=== PATIENT | female | born 1955 | race Asian ===

== ENCOUNTER 2019-11-29 03:34 | Inpatient (IN) | payer MEDICAID ==
[~2019-11-29] VITALS: Ht 154.9 cm; Wt 56.3 kg
--- NOTE | 2019-11-29 03:40 | NUR ---
ED Nurse Note: brought in by [facility] c/o heart palpitation onset 3 days ago, denies sob or cp. States being on atbx (cefalexin) regime for 5 days for GI complication prescribed by HCP. VSS, nad, aaox4, ambulatory. ermd at bedside, on compliance monitor.
--- NOTE | 2019-11-29 03:50 | NUR ---
ED Nurse Note: blood and urine collected and sent to lab.
[2019-11-29 03:51] LABS: HEMATOCRIT 38.6 % (37.0-47.0); HEMOGLOBIN 13.3 G/DL (12.0-16.0); MEAN CORPUSCULAR VOLUME 86 FL (80-99); PLATELET COUNT 198 K/UL (150-450); RED BLOOD COUNT 4.47 M/UL (4.20-5.40); RED CELL DISTRIBUTION WIDTH 11.3 % (11.6-14.8); WHITE BLOOD COUNT 7.6 K/UL (4.8-10.8)
[2019-11-29 04:00] VITALS: BP 168/94
[2019-11-29 04:05] LABS: ANION GAP 9 mmol/L (5-15); BLOOD UREA NITROGEN 20 mg/dL (7-18); CALCIUM 8.9 MG/DL (8.5-10.1); CARBON DIOXIDE 25 MMOL/L (21-32); CHLORIDE 105 MMOL/L (98-107); CREATININE 0.8 MG/DL (0.55-1.30); POTASSIUM 3.1 MMOL/L (3.5-5.1); SODIUM 139 MMOL/L (136-145)
[2019-11-29 04:06] LABS: INR 0.9 (0.9-1.1); PARTIAL THROMBOPLASTIN TIME 25 SEC (23-33)
--- NOTE | 2019-11-29 04:12 | NUR ---
ED Nurse Note: xr at bedside
[2019-11-29 04:24] LABS: ALANINE AMINOTRANSFERASE 48 U/L (12-78); ALBUMIN 4.1 G/DL (3.4-5.0); ALBUMIN/GLOBULIN RATIO 1.5 (1.0-2.7); ALKALINE PHOSPHATASE 74 U/L (46-116); ASPARTATE AMINO TRANSFERASE 24 U/L (15-37); BILIRUBIN,TOTAL 0.3 MG/DL (0.2-1.0); CREATINE KINASE 50 U/L (26-308); FERRITIN 165 NG/ML (8-388); LACTATE DEHYDROGENASE 173 U/L (81-234)
[2019-11-29] MEDS ORDERED: METFORMIN HCL500 M4 ORAL (04:34)
[2019-11-29] MEDS ORDERED: CEPHALEXIN500 MG ORAL (04:34)
[2019-11-29] MEDS ORDERED: METOPROLOL TAR100 M1 ORAL (04:34)
[2019-11-29] MEDS ORDERED: AMLODIPINE BESY10 MG ORAL (04:34)
--- NOTE | 2019-11-29 04:34 | Emergency Room Report ---
History of Present Illness General Chief Complaint: Palpitations Source: Patient Present Illness HPI Patient presents with 2 days of palpitations. They got worse tonight. She feels dizziness with the palpitations. Before 2 days she never had these symptoms. This was preceded with a week of diarrhea and brown in color without any blood. She was started on Keflex 500 mg twice daily to treat this. The diarrhea is somewhat better. She denies any abdominal pain associated with that. She was seen in an outpatient clinic where they started her on the Keflex. Patient was paz transported by paramedics. They had difficulty with language. They thought that she had shortness of breath. Her oxygen saturation was 98% and she was in no distress during the transport. The patient is diabetic. He also has hypertension. Her blood sugars have been 120 in the morning. She denies exposure to COVID-19 positive contacts. No fevers, chills, sore throat, chest pain, palpitations, dysuria, shortness of breath, joint pain, rashes, depression, anxiety, visual changes, headache. Allergies: Coded Allergies: No Known Allergies (Unverified , 11/29/19) COVID-19 Screening Contact w/high risk pt: No Experienced COVID-19 symptoms?: No COVID-19 Testing performed METALLURGICAL ENGINEERING TECHNICIAN: No Patient History Past Medical History: see triage record Social History: Denies: smoking, alcohol use, drug use Social History Narrative With family Now: No : 2 Para: 2 Reviewed Nursing Documentation: PMH: Agreed; PSxH: Agreed Nursing Documentation-PMH Hx Hypertension: Yes Hx Diabetes: Yes Review of Systems All Other Systems: negative except mentioned in HPI Physical Exam Vital Signs Date Time Temp Pulse Resp B/P (MAP) Pulse Ox O2 Delivery O2 Flow Rate FiO2 11/29/19 03:23 98 11/29/19 03:23 98.8 97 20 175/97 (123) Room Air Sp02 EP Interpretation: reviewed, normal General Appearance: well appearing, no apparent distress, GCS 15, other - frail Head: normocephalic 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; bilateral eye PERRL, bilateral eye EOMI ENT: moist mucus membranes Neck: supple Respiratory: lungs clear, normal breath sounds Cardiovascular #1: regular rate, rhythm Cardiovascular #2: 2+ radial (R) Gastrointestinal: normal inspection, normal bowel sounds, non tender, no mass, non-distended Musculoskeletal: back normal, normal range of motion, gait/station normal Neurologic: alert, motor strength/tone normal, oriented x3, sensory intact, cerebellar normal, speech normal, other - De La Vega's palsey Psychiatric: mood/affect normal Skin: no rash, warm/dry Medical Decision Making Diagnostic Impression: Primary Impression: Ventricular arrhythmia Additional Impressions: Hypokalemia UTI (urinary tract infection) Qualified Codes: N39.0 - Urinary tract infection, site not specified Elevated TSH ER Course Patient presents with palpitations with dizziness after diarrhea and being on antibiotics. Differential includes acute myocardial infarction, arrhythmia, electrolyte imbalance, COVID-19 amongst others. Patient evaluated with EKG, chest x-ray and labs. Patient treated with IV hydration. No ectopy noted on EKG however in the monitor and storage bin tender unifocal PVCs were frequent. CBC and CMP remarkable for low potassium. Negative troponin. TSH is elevated. Free T3 and T4 are normal. Treated with potassium PO and IV. Ectopy seems improved. Patient still needs observation telemetry and treatment for possible resistant UTI. Laboratory Tests Test 11/29/19 03:33 11/29/19 04:32 White Blood Count 7.6 K/UL (4.8-10.8) Red Blood Count 4.47 M/UL (4.20-5.40) Hemoglobin 13.3 G/DL (12.0-16.0) Hematocrit 38.6 % (37.0-47.0) Mean Corpuscular Volume 86 FL (80-99) Mean Corpuscular Hemoglobin 29.7 PG (27.0-31.0) Mean Corpuscular Hemoglobin Concent 34.4 G/DL (32.0-36.0) Red Cell Distribution Width 11.3 % (11.6-14.8) L Platelet Count 198 K/UL (150-450) Mean Platelet Volume 8.1 FL (6.5-10.1) Neutrophils (%) (Auto) % (45.0-75.0) Lymphocytes (%) (Auto) % (20.0-45.0) Monocytes (%) (Auto) % (1.0-10.0) Eosinophils (%) (Auto) % (0.0-3.0) Basophils (%) (Auto) % (0.0-2.0) Prothrombin Time 10.0 SEC (9.30-11.50) Prothrombin Time INR 0.9 (0.9-1.1) Activated Partial Thromboplast Time 25 SEC (23-33) D-Dimer < 0.19 mg/L FEU Sodium Level 139 MMOL/L (136-145) Potassium Level 3.1 MMOL/L (3.5-5.1) L Chloride Level 105 MMOL/L (98-107) Carbon Dioxide Level 25 MMOL/L (21-32) Anion Gap 9 mmol/L (5-15) Blood Urea Nitrogen 20 mg/dL (7-18) H Creatinine 0.8 MG/DL (0.55-1.30) Estimated Glomerular Filtration Rate > 60 mL/min (>60) Glucose Level 169 MG/DL (74-106) H Lactic Acid Level 1.80 mmol/L (0.4-2.0) Calcium Level 8.9 MG/DL (8.5-10.1) Magnesium Level 1.8 MG/DL (1.8-2.4) Ferritin 165 NG/ML (8-388) Total Bilirubin 0.3 MG/DL (0.2-1.0) Aspartate Amino Transferase (AST) 24 U/L (15-37) Alanine Aminotransferase (ALT) 48 U/L (12-78) Alkaline Phosphatase 74 U/L (46-116) Lactate Dehydrogenase 173 U/L (81-234) Total Creatine Kinase 50 U/L (26-308) Troponin I 0.000 ng/mL (0.000-0.056) C-Reactive Protein, Quantitative < 0.4 mg/dL (0.00-0.90) Pro-B-Type Natriuretic Peptide 89 pg/mL (0-125) Total Protein 6.8 G/DL (6.4-8.2) Albumin 4.1 G/DL (3.4-5.0) Globulin 2.7 g/dL Albumin/Globulin Ratio 1.5 (1.0-2.7) Lipase 181 U/L (73-393) Thyroid Stimulating Hormone (TSH) 7.893 uiU/mL (0.358-3.740) Free Thyroxine 1.18 NG/DL (0.76-1.46) Free Triiodothyronine 3.0 pg/mL (2.3-4.2) Urine Color Pale yellow Urine Appearance Slightly cloudy Urine pH 6.0 (4.5-8.0) Urine Specific [place] 1.010 (1.005-1.035) Urine Protein Negative (NEGATIVE) Urine Glucose (UA) Negative (NEGATIVE) Urine Ketones Negative (NEGATIVE) Urine Blood Negative (NEGATIVE) Urine Nitrite Negative (NEGATIVE) Urine Bilirubin Negative (NEGATIVE) Urine Urobilinogen Normal MG/DL (0.0-1.0) Urine Leukocyte Esterase 3+ (NEGATIVE) H Urine RBC 0-2 /HPF (0 - 2) Urine WBC Tntc /HPF (0 - 2) H Urine Squamous Epithelial Cells Moderate /LPF (NONE/OCC) H Urine Bacteria Few /HPF (NONE) Microbiology Date/Time Source Procedure Growth Status 11/29/19 03:42 Nasopharynx SARS-CoV-2 RdRp Gene Assay - Final Complete EKG Diagnostic Results Rate: normal Rhythm: NSR ST Segments: no acute changes Rhythm Strip Diag. Results EP Interpretation: yes Rhythm: NSR, other - Frequent unifocal PVCs on monitor not captured on EKG. Chest X-Ray Diagnostic Results Chest X-Ray Diagnostic Results : Chest X-Ray Ordered: Yes # of Views/Limited/Complete: 1 View Indication: Other EP Interpretation: Yes Interpretation: no consolidation, no effusion, no pneumothorax Impression: No acute disease Last Vital Signs Date Time Temp Pulse Resp B/P (MAP) Pulse Ox O2 Delivery O2 Flow Rate FiO2 11/29/19 09:57 75 129/72 11/29/19 08:00 98.1 19 96 11/29/19 06:35 Room Air Status: improved Disposition: PLACE IN OBSERVATION Condition: Serious Referrals: NOT CHOSEN IPA/,REFERRING (PCP) Guanakito Haro MD Nov 29, 2019 04:34
[2019-11-29 05:35] LABS: BILIRUBIN, URINE NEGATIVE (NEGATIVE); COLOR,URINE PALE YELLOW; GLUCOSE, URINE (UA) NEGATIVE (NEGATIVE); KETONES,URINE NEGATIVE (NEGATIVE); NITRITE,URINE NEGATIVE (NEGATIVE); PROTEIN,URINE NEGATIVE (NEGATIVE)
[2019-11-29 05:36] LABS: APPEARANCE,URINE SLIGHTLY CLOUDY; LEUKOCYTE ESTERASE ,URINE 3+ (NEGATIVE); UROBILINOGEN,URINE NORMAL MG/DL (0.0-1.0)
[2019-11-29] MEDS ORDERED: cefTRIAXone 1 GM in NS 55 ML IVPB ONE (05:45)
--- NOTE | 2019-11-29 06:18 | NUR ---
ED Nurse Note: gave report to parole agent at tele
[2019-11-29 06:19] VITALS: BP 142/90
--- NOTE | 2019-11-29 06:35 | NUR ---
TRANSFER TO FLOOR: Patient transferred to [facility] in stable condition as ordered, per dr. Viera . Report given to Rebecca BARRIOS. Belongings sent with patient
--- NOTE | 2019-11-29 07:15 | NUR ---
NURSE NOTES: Pt received from José Luis BARRIOS. Pt in bed sleeping. Admission orders not yet done. Called daughter to gather profile/hx and contactd Dr. Viera for admin orders. No sign of distress per pt no pain at this time. Bed low and locked. call light within reach. Whiteboard updated.
[2019-11-29 08:00] VITALS: BP 129/72
[2019-11-29] MEDS ORDERED: Miralax 17gm pkt ORAL PRN (08:30)
[2019-11-29] MEDS ORDERED: Tylenol #3 tab (300mg/30mg) ORAL PRN (08:30)
[2019-11-29] MEDS ORDERED: Nitroglycerin Subl 0.4mg tab SL PRN (08:30)
[2019-11-29] MEDS ORDERED: Enalaprilat 2.5mg/2ml Inj IV PRN (08:30)
[2019-11-29] MEDS ORDERED: dilTIAZem HCl 25mg/5ml Inj IV PRN (08:30)
[2019-11-29] MEDS ORDERED: Albuterol/Ipratropium 3ml neb HHN PRN (08:30)
[2019-11-29] MEDS ORDERED: Heparin 5000 units/ml inj SUBQ SCH (09:00)
[2019-11-29] MEDS ORDERED: Aspirin Baby 81mg ORAL SCH (09:00)
[2019-11-29] MEDS: Aspirin Baby 81mg ORAL SCH (09:57)
[2019-11-29] MEDS: Metoprolol Tartrate 100mg tab ORAL SCH (09:57)
--- NOTE | 2019-11-29 10:27 | Diagnostic Imaging Report ---
Procedure: XRAY Chest 1v Reason for study: Chest pain Comparison films: None. FINDINGS: A single one view chest is obtained. Vascularity is normal. The lung wilson are clear bilaterally. Cardiac and mediastinal silhouette are within normal limits. CP angles are sharp. The bony thorax appear unremarkable. IMPRESSION: NO ACUTE CARDIOPULMONARY DISEASE.
--- NOTE | 2019-11-29 11:27 | Consultation ---
History of Present Illness General Date patient seen: Nov 29, 2019 Chief Complaint: Palpitations Present Illness HPI 64 year old female with hx of HTN, Diabetes presented to ER with 2 days of palpitations. She felt dizziness with the palpitations. During the evaluation in ER she had in the radiation monitor frequent unifocal PVCs. Allergies: Coded Allergies: No Known Allergies (Unverified , 11/29/19) Medication History Scheduled Amlodipine Besylate* (Amlodipine Besylate*), 10 MG ORAL DAILY, (Reported) Cephalexin* (Keflex*), 500 MG ORAL EVERY 12 HOURS, (Reported) Metformin Hcl (Metformin Hcl Er), 500 MG ORAL DAILY, (Reported) Metoprolol Tartrate* (Metoprolol Tartrate*), 100 MG ORAL DAILY, (Reported) Patient History Healthcare decision maker Resuscitation status Advanced Directive on File Past Medical/Surgical History Past Medical/Surgical History: (1) Diabetes mellitus (2) History of hypertension Review of Systems All Other Systems: negative except mentioned in HPI Physical Exam General Appearance: WD/WN Lines, tubes and drains: peripheral HEENT: normocephalic, atraumatic Neck: non-tender, normal alignment Respiratory/Chest: chest wall non-tender, lungs clear Breasts: no masses Cardiovascular/Chest: normal peripheral pulses Abdomen: normal bowel sounds, non tender Genitourinary/Rectal: normal genital exam Extremities: normal range of motion Skin Exam: normal pigmentation Neurologic: order runner II-XII grossly normal Last 24 Hour Vital Signs Date Time Temp Pulse Resp B/P (MAP) Pulse Ox O2 Delivery O2 Flow Rate FiO2 11/29/19 09:57 75 129/72 11/29/19 09:57 75 129/72 11/29/19 09:00 Room Air 11/29/19 08:00 75 11/29/19 08:00 98.1 71 19 129/72 (91) 96 11/29/19 07:31 Room Air 11/29/19 06:35 98.1 65 20 142/90 98 Room Air 11/29/19 06:19 98.1 65 20 142/90 98 Room Air 11/29/19 04:00 97.8 78 20 168/94 98 Room Air 11/29/19 03:23 98.8 97 20 175/97 (123) 96 Room Air 11/29/19 03:23 98 Laboratory Tests Test 11/29/19 03:33 11/29/19 04:32 White Blood Count 7.6 K/UL (4.8-10.8) Red Blood Count 4.47 M/UL (4.20-5.40) Hemoglobin 13.3 G/DL (12.0-16.0) Hematocrit 38.6 % (37.0-47.0) Mean Corpuscular Volume 86 FL (80-99) Mean Corpuscular Hemoglobin 29.7 PG (27.0-31.0) Mean Corpuscular Hemoglobin Concent 34.4 G/DL (32.0-36.0) Red Cell Distribution Width 11.3 % (11.6-14.8) L Platelet Count 198 K/UL (150-450) Mean Platelet Volume 8.1 FL (6.5-10.1) Neutrophils (%) (Auto) % (45.0-75.0) Lymphocytes (%) (Auto) % (20.0-45.0) Monocytes (%) (Auto) % (1.0-10.0) Eosinophils (%) (Auto) % (0.0-3.0) Basophils (%) (Auto) % (0.0-2.0) Prothrombin Time 10.0 SEC (9.30-11.50) Prothromb Time International Ratio 0.9 (0.9-1.1) Activated Partial Thromboplast Time 25 SEC (23-33) D-Dimer < 0.19 mg/L FEU Sodium Level 139 MMOL/L (136-145) Potassium Level 3.1 MMOL/L (3.5-5.1) L Chloride Level 105 MMOL/L (98-107) Carbon Dioxide Level 25 MMOL/L (21-32) Anion Gap 9 mmol/L (5-15) Blood Urea Nitrogen 20 mg/dL (7-18) H Creatinine 0.8 MG/DL (0.55-1.30) Estimat Glomerular Filtration Rate > 60 mL/min (>60) Glucose Level 169 MG/DL (74-106) H Lactic Acid Level 1.80 mmol/L (0.4-2.0) Calcium Level 8.9 MG/DL (8.5-10.1) Magnesium Level 1.8 MG/DL (1.8-2.4) Ferritin 165 NG/ML (8-388) Total Bilirubin 0.3 MG/DL (0.2-1.0) Aspartate Amino Transf (AST/SGOT) 24 U/L (15-37) Alanine Aminotransferase (ALT/SGPT) 48 U/L (12-78) Alkaline Phosphatase 74 U/L (46-116) Lactate Dehydrogenase 173 U/L (81-234) Total Creatine Kinase 50 U/L (26-308) Troponin I 0.000 ng/mL (0.000-0.056) C-Reactive Protein, Quantitative < 0.4 mg/dL (0.00-0.90) Pro-B-Type Natriuretic Peptide 89 pg/mL (0-125) Total Protein 6.8 G/DL (6.4-8.2) Albumin 4.1 G/DL (3.4-5.0) Globulin 2.7 g/dL Albumin/Globulin Ratio 1.5 (1.0-2.7) Lipase 181 U/L (73-393) Thyroid Stimulating Hormone (TSH) 7.893 uiU/mL (0.358-3.740) Free Thyroxine 1.18 NG/DL (0.76-1.46) Free Triiodothyronine 3.0 pg/mL (2.3-4.2) Urine Color Pale yellow Urine Appearance Slightly cloudy Urine pH 6.0 (4.5-8.0) Urine Specific [place] 1.010 (1.005-1.035) Urine Protein Negative (NEGATIVE) Urine Glucose (UA) Negative (NEGATIVE) Urine Ketones Negative (NEGATIVE) Urine Blood Negative (NEGATIVE) Urine Nitrite Negative (NEGATIVE) Urine Bilirubin Negative (NEGATIVE) Urine Urobilinogen Normal MG/DL (0.0-1.0) Urine Leukocyte Esterase 3+ (NEGATIVE) H Urine RBC 0-2 /HPF (0 - 2) Urine WBC Tntc /HPF (0 - 2) H Urine Squamous Epithelial Cells Moderate /LPF (NONE/OCC) H Urine Bacteria Few /HPF (NONE) Microbiology Date/Time Source Procedure Growth Status 11/29/19 03:42 Nasopharynx SARS-CoV-2 RdRp Gene Assay - Final Complete Height (Feet): 5 Height (Inches): 1.00 Weight (Pounds): 130 Medications Current Medications Medications (Trade) Dose Ordered Sig/Sabas Route PRN Reason Start Time Stop Time Status Last Admin Dose Admin Acetaminophen (Tylenol) 650 mg Q4H PRN ORAL FEVER 11/29/19 08:30 12/29/19 08:29 Acetaminophen (Tylenol) 650 mg Q6H PRN ORAL For mild pain and temp>100.4 11/29/19 08:30 12/29/19 08:29 Acetaminophen/ Codeine Phosphate (Tylenol #3) 1 tab Q6H PRN ORAL For severe Pain 11/29/19 08:30 12/06/19 08:29 Albuterol/ Ipratropium (Albuterol/ Ipratropium) 3 ml Q4H PRN HHN Shortness of Breath 11/29/19 08:30 12/04/19 08:29 Amlodipine Besylate (Norvasc) 10 mg DAILY ORAL 11/29/19 09:00 12/29/19 08:59 11/29/19 09:57 Aspirin (ASA) 162 mg DAILY ORAL 11/29/19 09:00 01/13/20 08:59 11/29/19 09:57 Ceftriaxone Sodium 1 gm/ Dextrose 55 ml @ 110 mls/hr Q24H IVPB 11/29/19 21:00 12/06/19 20:59 Dextrose (Dextrose 50%) 25 ml Q30M PRN IV Hypoglycemia 11/29/19 08:30 02/27/20 08:29 Dextrose (Dextrose 50%) 50 ml Q30M PRN IV Hypoglycemia 11/29/19 08:30 02/27/20 08:29 Diltiazem HCl (Cardizem) 10 mg Q1H PRN IV heart rate more than 120, 11/29/19 08:30 12/29/19 08:29 Enalaprilat (Vasotec) 2.5 mg Q6H PRN IV sbp more than 160 11/29/19 08:30 12/29/19 08:29 Heparin Sodium (Porcine) (Heparin 5000 units/ml) 5,000 units EVERY 8 HOURS SUBQ 11/29/19 14:00 01/13/20 13:59 Insulin Aspart (NovoLOG) BEFORE MEALS AND HS SUBQ 11/29/19 11:30 02/27/20 11:29 Metoprolol Tartrate (Lopressor) 100 mg DAILY ORAL 11/29/19 09:07 02/27/20 09:06 11/29/19 09:57 Nitroglycerin (Ntg) 0.4 mg Q5M PRN SL Prn Chest Pain 11/29/19 08:30 12/29/19 08:29 Ondansetron HCl (Zofran) 4 mg Q6H PRN IVP Nausea & Vomiting 11/29/19 08:30 12/29/19 08:29 Pantoprazole (Protonix) 40 mg DAILY ORAL 11/29/19 09:00 12/29/19 08:59 11/29/19 09:56 Polyethylene Glycol (Miralax) 17 gm DAILYPRN PRN ORAL Constipation 11/29/19 08:30 12/29/19 08:29 Temazepam (Restoril) 15 mg HSPRN PRN ORAL Insomnia 11/29/19 08:30 12/06/19 08:29 Assessment/Plan Problem List: (1) Arrhythmia ICD Codes: I49.9 - Cardiac arrhythmia, unspecified SNOMED: 753075851 (2) History of hypertension ICD Codes: Z86.79 - Personal history of other diseases of the circulatory system SNOMED: 018488834 (3) Diabetes mellitus ICD Codes: E11.9 - Type 2 diabetes mellitus without complications SNOMED: 01703641 Assessment/Plan: echo cardiac monitoring check electrolytes cardiology to see sliding scale diabetic diet dvt prophylaxis symptomatic treatment Paulette Garcia MD Nov 29, 2019 11:27
[2019-11-29] MEDS: NovoLOG Insulin Flexpen SUBQ SCH ×3 (11:30→21:00)
[2019-11-29 12:00] VITALS: BP 115/61
--- NOTE | 2019-11-29 14:07 | Cardiology Report ---
APPROVED REPORT EXAM: Two-dimensional and M-mode echocardiogram with Doppler and color Doppler. INDICATION Left ventricular function M-Mode DIMENSIONS IVSd1.1 (0.7-1.1cm)Left Atrium (MM)3.5 (1.6-4.0cm) LVDd5.5 (3.5-5.6cm)Aortic Root2.8 (2.0-3.7cm) PWd1.1 (0.7-1.1cm)Aortic Cusp Exc.2.1 (1.5-2.0cm) IVSs1.8 cmEPSS0.8 (>1.0cm) LVDs3.3 (2.5-4.0cm) PWs2.4 cm <Conclusion> Normal left ventricular chamber size, systolic function and wall motion. Left ventricular ejection fraction estimated to be 60-65%. No evidence of left ventricular hypertrophy. No evidence of pericardial effusion. All other cardiac chamber sizes are within normal limits. Focal aortic valve sclerosis with adequate cusp excursion. Thickened mitral valve leaflets with normal excursion. Mitral annulus and aortic root calcification. Normal pulmonic valve structure. Normal tricuspid valve structure. IVC at normal size and collapsing with respiration. A color flow and spectral Doppler study was performed and revealed: No aortic regurgitation. Trace mitral regurgitation. Can not determine left ventricular diastolic function by mitral diastolic velocities due to arrhythmia. Trace to mild tricuspid regurgitation. Tricuspid systolic velocities suggests peak right ventricular systolic pressure of 25 mmHg. No pulmonic regurgitation present.
[2019-11-29] MEDS: Heparin 5000 units/ml inj SUBQ SCH ×2 (14:31→21:45)
[2019-11-29 15:14] LABS: APPEARANCE,URINE CLEAR; BILIRUBIN, URINE NEGATIVE (NEGATIVE); COLOR,URINE PALE YELLOW; GLUCOSE, URINE (UA) NEGATIVE (NEGATIVE); KETONES,URINE NEGATIVE (NEGATIVE); LEUKOCYTE ESTERASE ,URINE 2+ (NEGATIVE); NITRITE,URINE NEGATIVE (NEGATIVE); PH,URINE 5 (4.5-8.0); PROTEIN,URINE NEGATIVE (NEGATIVE); UROBILINOGEN,URINE NORMAL MG/DL (0.0-1.0)
--- NOTE | 2019-11-29 15:19 | History & Physical ---
History and Physical History & Physicial -[id number] Cecil Viera MD Nov 29, 2019 15:19
[2019-11-29 16:00] VITALS: BP 118/97
--- NOTE | 2019-11-29 19:41 | NUR ---
NURSE HAND-OFF REPORT: Important Events on Shift: None Patient Status: in bed sleeping stable Diet:CCHo medium Pending Orders: Pending Results/Labs: Pending MD notification: Latest Vital Signs: Temperature 99.6 , Pulse 81 , B/P 118 /97 , Respiratory Rate 21 , O2 SAT 96 , Room Air, O2 Flow Rate . Vital Sign Comment: EKG Rhythm: Sinus Rhythm Rhythm change?: N MD Notified?: N - MD Response: Latest Tristan Fall Score: 0 Fall Risk: Low Risk Safety Measures: Call light Within Reach, Bed Alarm Zone 1, Side Rails Side Rails x2, Bed position Low and Locked. Fall Precautions: Patient Fall Education Report given to .
--- NOTE | 2019-11-29 19:53 | NUR ---
NURSE NOTES: Received pt from DENIS Ruiz. Pt asleep. Bed in lowest position. Call light within reach. Will continue to monitor.
[2019-11-29 20:00] VITALS: BP 120/66
--- NOTE | 2019-11-29 20:59 | History and Physical Report ---
DATE OF ADMISSION: 11/29/2019 CHIEF COMPLAINT: Weakness, palpitation. HISTORY OF PRESENT ILLNESS: This is a 64-year-old [place] female with past medical history significant for hypertension and diabetes type 2, who presented to the emergency department complaining about palpitation over the past two days. The patient felt dizzy and palpitation, was recently started on the Keflex due to the urinary tract infection. Her symptoms got progressively worsening. Upon arrival to the emergency room, the patient was noted to have multiple PVC's on the safety security officer and subsequently the patient was admitted to the hospital with palpitation, hypokalemia, and urinary tract infection. PAST MEDICAL HISTORY/PAST SURGICAL HISTORY: As above, history of diabetes type 2, hypertension, recent urinary tract infection. MEDICATIONS: Medications at home is significant for amlodipine, Keflex, metformin, and metoprolol. ALLERGIES: No known drug allergies. SOCIAL HISTORY: No smoking, alcohol, or drugs. FAMILY HISTORY: Noncontributory. REVIEW OF SYSTEMS: Mostly as above. Denies any a dysuria, frequency, or hematuria. Denies any hemoptysis or hematochezia. Denies any bright red blood per rectum. PHYSICAL EXAMINATION: VITAL SIGNS: On admission, temperature 98.8, pulse of 97, respiratory rate 20, and blood pressure 175/97; repeat one was 129/72. GENERAL: The patient is awake and responsive, in no acute distress. HEAD AND NECK: Pupils are equal and reactive to light. Extraocular movements are intact. Neck was supple. No JVD. LUNGS: Good air entry. No wheezing or rales. HEART: S1, S2. Regular rhythm. No gallops. ABDOMEN: Soft, nondistended, and nontender. Positive bowel sounds. EXTREMITIES: No cyanosis, clubbing, or edema. NEUROLOGIC: Cranial nerves II through XII grossly normal. Motor is 5/5 in all extremities. Gait is intact. RECTAL: Refused and deferred. GENITOURINARY: Refused and deferred. PSYCHIATRIC: Mood and affect is intact. LABORATORY DATA: On admission from the emergency room, WBC of 7.9, hemoglobin 13, hematocrit 38, platelets 198,000. Sodium 139, potassium 3.1, chloride 105, bicarb 25, BUN 20, creatinine 0.8. Calcium is 8.9. Glucose is 169. TSH is 7.89, T3 is 3.0, T4 is 1.18. PT of 10, INR was 0.9, PTT of 25, and D-dimer is less than 0.09. UA is +3 leukocytes, tainted wbc's, moderate squamous epithelial cells. The patient had a chest x-ray, no acute cardiopulmonary disease. ASSESSMENT: 1. Palpitation. 2. Hypokalemia. 3. Dehydration. 4. Acute urinary tract infection. 5. Diabetes type 2. 6. Hypertension. PLAN: 1. Admit the patient to monitored unit. 2. We will follow up potassium supplement. 3. Code status is Full Code. 4. DVT prophylaxis, heparin subcutaneous. 5. Broad spectrum antibiotic, Rocephin. 6. Follow up with laboratory as well as culture. 2D echo. 7. Discussed with Dr. Garcia, Pulmonary Critical Care. 8. Discussed with the daughter over the phone. Cecil Viera M.D. DR: LAZARUS JOB#: [id number] CC:
[2019-11-29] MEDS: cefTRIAXone 1 GM in D5W 55 ML IVPB SCH (21:44)
[2019-11-30] VITALS: BP 118/64
[2019-11-30 04:00] VITALS: BP_SYST 121; BP_SYST 130; BP_DIAS 60; BP_DIAS 61
[2019-11-30] MEDS: NovoLOG Insulin Flexpen SUBQ SCH ×4 (05:23→21:25)
[2019-11-30] MEDS: Heparin 5000 units/ml inj SUBQ SCH ×3 (05:33→21:24)
--- NOTE | 2019-11-30 07:20 | NUR ---
NURSE HAND-OFF REPORT: Important Events on Shift: patient had episodes of nausea last night. No emesis Patient Status: stable Diet: ccho medium Pending Orders: y Pending Results/Labs:y Pending MD notification:y Latest Vital Signs: Temperature 96.4 , Pulse 70 , B/P 121 /61 , Respiratory Rate 22 , O2 SAT 93 , Room Air, O2 Flow Rate . Vital Sign Comment: stable EKG Rhythm: Sinus Rhythm Rhythm change?: N MD Notified?: N - MD Response: Latest Tristan Fall Score: 35 Fall Risk: Medium Risk Safety Measures: Call light Within Reach, Bed Alarm Zone 1, Side Rails Side Rails x2, Bed position Low and Locked. Fall Precautions: y Patient Fall Education y Report given to DENIS Padilla.
[2019-11-30 08:00] VITALS: BP 137/70
[2019-11-30] MEDS: Metoprolol Tartrate 100mg tab ORAL SCH (08:22)
[2019-11-30] MEDS: Aspirin Baby 81mg ORAL SCH (08:22)
[2019-11-30 08:35] LABS: EOSINOPHILS % (AUTO) 3.1 % (0.0-3.0); HEMATOCRIT 39.4 % (37.0-47.0); HEMOGLOBIN 13.5 G/DL (12.0-16.0); LYMPHOCYTES % (AUTO) 48.4 % (20.0-45.0); MEAN CORPUSCULAR VOLUME 87 FL (80-99); NEUTROPHILS % (AUTO) 41.6 % (45.0-75.0); PLATELET COUNT 208 K/UL (150-450); RED BLOOD COUNT 4.54 M/UL (4.20-5.40); RED CELL DISTRIBUTION WIDTH 11.6 % (11.6-14.8); WHITE BLOOD COUNT 5.8 K/UL (4.8-10.8)
--- NOTE | 2019-11-30 08:54 | NUR ---
CASE MANAGEMENT:REVIEW 64 YR OLD FEMALE BIBA FROM HOME CC; PALPITATIONS PMH: HTN. DM SI:HYPOKALEMIA. UTI. VENTRICULAR ARRHYTHMIA 98.7 97 20 175/97 96% ON RA K-3.1 BUN+20 GLUCOSE+169 TROPONIN(-) IS: KCL PO IV KCL IV ROCEPHIN URINE CX COVID SWAB : TELEMETRY STATUS DCP: FROM HOME
[2019-11-30 08:57] LABS: INR 0.9 (0.9-1.1)
[2019-11-30 09:09] LABS: ALANINE AMINOTRANSFERASE 52 U/L (12-78); ALBUMIN/GLOBULIN RATIO 1.2 (1.0-2.7); ALKALINE PHOSPHATASE 74 U/L (46-116); ANION GAP 11 mmol/L (5-15); ASPARTATE AMINO TRANSFERASE 29 U/L (15-37); BILIRUBIN,TOTAL 0.5 MG/DL (0.2-1.0); BLOOD UREA NITROGEN 14 mg/dL (7-18); CALCIUM 8.7 MG/DL (8.5-10.1); CARBON DIOXIDE 25 MMOL/L (21-32); CHLORIDE 105 MMOL/L (98-107); CHOLESTEROL 207 MG/DL (< 200); CREATININE 0.7 MG/DL (0.55-1.30); HDL CHOLESTEROL 48 MG/DL (40-60); POTASSIUM 3.8 MMOL/L (3.5-5.1); SODIUM 141 MMOL/L (136-145); TRIGLYCERIDES 188 MG/DL (30-150)
[2019-11-30 09:22] LABS: PHOSPHORUS 4.1 MG/DL (2.5-4.9)
--- NOTE | 2019-11-30 11:43 | Internal Med Progress Note ---
Subjective Date of Service: Nov 30, 2019 Physician Name Gomez Hickey Attending Physician Cecil Viera MD Current Medications Medications (Trade) Dose Ordered Sig/Sabas Route PRN Reason Start Time Stop Time Status Last Admin Dose Admin Acetaminophen (Tylenol) 650 mg Q4H PRN ORAL FEVER 11/29/19 08:30 12/29/19 08:29 Acetaminophen (Tylenol) 650 mg Q6H PRN ORAL For mild pain and temp>100.4 11/29/19 08:30 12/29/19 08:29 Acetaminophen/ Codeine Phosphate (Tylenol #3) 1 tab Q6H PRN ORAL For severe Pain 11/29/19 08:30 12/06/19 08:29 Albuterol/ Ipratropium (Albuterol/ Ipratropium) 3 ml Q4H PRN HHN Shortness of Breath 11/29/19 08:30 12/04/19 08:29 Amlodipine Besylate (Norvasc) 10 mg DAILY ORAL 11/29/19 09:00 12/29/19 08:59 11/30/19 08:23 Aspirin (ASA) 162 mg DAILY ORAL 11/29/19 09:00 01/13/20 08:59 11/30/19 08:22 Ceftriaxone Sodium 1 gm/ Dextrose 55 ml @ 110 mls/hr Q24H IVPB 11/29/19 21:00 12/06/19 20:59 11/29/19 21:44 Dextrose (Dextrose 50%) 25 ml Q30M PRN IV Hypoglycemia 11/29/19 08:30 02/27/20 08:29 Dextrose (Dextrose 50%) 50 ml Q30M PRN IV Hypoglycemia 11/29/19 08:30 02/27/20 08:29 Diltiazem HCl (Cardizem) 10 mg Q1H PRN IV heart rate more than 120, 11/29/19 08:30 12/29/19 08:29 Enalaprilat (Vasotec) 2.5 mg Q6H PRN IV sbp more than 160 11/29/19 08:30 12/29/19 08:29 Heparin Sodium (Porcine) (Heparin 5000 units/ml) 5,000 units EVERY 8 HOURS SUBQ 11/29/19 14:00 01/13/20 13:59 11/30/19 05:33 Insulin Aspart (NovoLOG) BEFORE MEALS AND HS SUBQ 11/29/19 11:30 02/27/20 11:29 Metoprolol Tartrate (Lopressor) 100 mg DAILY ORAL 11/29/19 09:07 02/27/20 09:06 11/30/19 08:22 Nitroglycerin (Ntg) 0.4 mg Q5M PRN SL Prn Chest Pain 11/29/19 08:30 12/29/19 08:29 Ondansetron HCl (Zofran) 4 mg Q6H PRN IVP Nausea & Vomiting 11/29/19 08:30 12/29/19 08:29 11/30/19 08:22 Pantoprazole (Protonix) 40 mg DAILY ORAL 11/29/19 09:00 12/29/19 08:59 11/30/19 08:23 Polyethylene Glycol (Miralax) 17 gm DAILYPRN PRN ORAL Constipation 11/29/19 08:30 12/29/19 08:29 Temazepam (Restoril) 15 mg HSPRN PRN ORAL Insomnia 11/29/19 08:30 12/06/19 08:29 Allergies: Coded Allergies: No Known Allergies (Unverified , 11/29/19) ROS Limited/Unobtainable: No Constitutional: Reports: no symptoms HEENT: Reports: no symptoms Cardiovascular: Reports: palpitations Respiratory: Reports: no symptoms Gastrointestinal/Abdominal: Reports: no symptoms Genitourinary: Reports: no symptoms Neurologic/Psychiatric: Reports: no symptoms Subjective 64 YO F admitted with palpitations. Now PVC's. Cover for Int Justice-DR Viera Objective Last Vital Signs Date Time Temp Pulse Resp B/P (MAP) Pulse Ox O2 Delivery O2 Flow Rate FiO2 11/30/19 09:00 Room Air 11/30/19 08:23 95 137/70 11/30/19 08:00 97.5 20 95 Laboratory Tests Test 11/29/19 14:45 11/29/19 21:42 11/30/19 06:55 11/30/19 11:28 Urine Color Pale yellow Urine Appearance Clear Urine pH 5 (4.5-8.0) Urine Specific [place] 1.010 (1.005-1.035) Urine Protein Negative (NEGATIVE) Urine Glucose (UA) Negative (NEGATIVE) Urine Ketones Negative (NEGATIVE) Urine Blood Negative (NEGATIVE) Urine Nitrite Negative (NEGATIVE) Urine Bilirubin Negative (NEGATIVE) Urine Urobilinogen Normal MG/DL (0.0-1.0) Urine Leukocyte Esterase 2+ (NEGATIVE) H Urine RBC 0-2 /HPF (0 - 2) Urine WBC 10-15 /HPF (0 - 2) H Urine Squamous Epithelial Cells Moderate /LPF (NONE/OCC) H Urine Bacteria Occasional /HPF (NONE) POC Whole Blood Glucose Pending 128 MG/DL (74-106) H White Blood Count 5.8 K/UL (4.8-10.8) Red Blood Count 4.54 M/UL (4.20-5.40) Hemoglobin 13.5 G/DL (12.0-16.0) Hematocrit 39.4 % (37.0-47.0) Mean Corpuscular Volume 87 FL (80-99) Mean Corpuscular Hemoglobin 29.7 PG (27.0-31.0) Mean Corpuscular Hemoglobin Concent 34.2 G/DL (32.0-36.0) Red Cell Distribution Width 11.6 % (11.6-14.8) Platelet Count 208 K/UL (150-450) Mean Platelet Volume 8.3 FL (6.5-10.1) Neutrophils (%) (Auto) 41.6 % (45.0-75.0) L Lymphocytes (%) (Auto) 48.4 % (20.0-45.0) H Monocytes (%) (Auto) 6.0 % (1.0-10.0) Eosinophils (%) (Auto) 3.1 % (0.0-3.0) H Basophils (%) (Auto) 1.0 % (0.0-2.0) Prothrombin Time 10.3 SEC (9.30-11.50) Prothromb Time International Ratio 0.9 (0.9-1.1) Activated Partial Thromboplast Time 34 SEC (23-33) H Sodium Level 141 MMOL/L (136-145) Potassium Level 3.8 MMOL/L (3.5-5.1) Chloride Level 105 MMOL/L (98-107) Carbon Dioxide Level 25 MMOL/L (21-32) Anion Gap 11 mmol/L (5-15) Blood Urea Nitrogen 14 mg/dL (7-18) Creatinine 0.7 MG/DL (0.55-1.30) Estimat Glomerular Filtration Rate > 60 mL/min (>60) Glucose Level 143 MG/DL (74-106) H Calcium Level 8.7 MG/DL (8.5-10.1) Phosphorus Level 4.1 MG/DL (2.5-4.9) Magnesium Level 2.1 MG/DL (1.8-2.4) Total Bilirubin 0.5 MG/DL (0.2-1.0) Aspartate Amino Transf (AST/SGOT) 29 U/L (15-37) Alanine Aminotransferase (ALT/SGPT) 52 U/L (12-78) Alkaline Phosphatase 74 U/L (46-116) C-Reactive Protein, Quantitative < 0.4 mg/dL (0.00-0.90) Total Protein 7.4 G/DL (6.4-8.2) Albumin 4.0 G/DL (3.4-5.0) Globulin 3.4 g/dL Albumin/Globulin Ratio 1.2 (1.0-2.7) Triglycerides Level 188 MG/DL (30-150) H Cholesterol Level 207 MG/DL (< 200) H LDL Cholesterol 138 mg/dL (<100) H HDL Cholesterol 48 MG/DL (40-60) Cholesterol/HDL Ratio 4.3 (3.3-4.4) Thyroid Stimulating Hormone (TSH) 2.086 uiU/mL (0.358-3.740) Microbiology Date/Time Source Procedure Growth Status 11/29/19 14:45 Urine,Clean Catch Urine Culture - Preliminary NO GROWTH Resulted 11/29/19 04:32 Urine,Clean Catch Urine Culture - Preliminary NO GROWTH Resulted 11/29/19 03:42 Nasopharynx SARS-CoV-2 RdRp Gene Assay - Final Complete Intake and Output 11/29/19 11/30/19 19:00 07:00 Intake Total 140 ml Output Total 1200 ml Balance -1060 ml Intake Oral 140 ml Output Urine Total 1200 ml # Voids 3 2 # Bowel Movements 2 1 Objective PHYSICAL EXAMINATION: GENERAL: The patient is awake and responsive, in no acute distress. HEAD AND NECK: Pupils are equal and reactive to light. Extraocular movements are intact. Neck was supple. No JVD. LUNGS: Good air entry. No wheezing or rales. HEART: S1, S2. Regular rhythm. No gallops. ABDOMEN: Soft, nondistended, and nontender. Positive bowel sounds. EXTREMITIES: No cyanosis, clubbing, or edema. NEUROLOGIC: Cranial nerves II through XII grossly normal. Motor is 5/5 in all extremities. Gait is intact. RECTAL: Refused and deferred. GENITOURINARY: Refused and deferred. PSYCHIATRIC: Mood and affect is intact. Assessment/Plan Assessment/Plan ASSESSMENT: 1. Palpitation. 2. Hypokalemia. 3. Dehydration. 4. Acute urinary tract infection (culture=NG) 5. Diabetes type 2. 6. Hypertension. PLAN: 1. Admit the patient to monitored unit. 2. We will follow up potassium supplement. 3. Code status is Full Code. 4. DVT prophylaxis, heparin subcutaneous. 5. Broad spectrum antibiotic, Rocephin. 6. 2D echo LVEF=60-65% 7. Dr. Garcia=Pulmonary/Critical Care. Gomez Hickey MD Nov 30, 2019 11:43
[2019-11-30 12:00] VITALS: BP 98/55
[2019-11-30] MEDS ORDERED: Omnipaque-300 100ml vial INJ PRN (12:15)
--- NOTE | 2019-11-30 15:08 | NUR ---
NURSE NOTES: Pt blood pressure remains 98/58. Pt is stable and asymptomatic and resting in bed. dr Hickye notified. Parameters given. Told to recheck Pt in 30min and call back if remains low. order acknowledged and carried out.
--- NOTE | 2019-11-30 15:14 | NUR ---
NURSE NOTES: Care given to DENIS Zepeda.
--- NOTE | 2019-11-30 15:39 | NUR ---
NURSE NOTES: Pt blood pressure checked again per Dr Hickey, BP improved 103/62. Resting in bed. No s/s or complaint of distress
[2019-11-30 16:00] VITALS: BP 107/62
--- NOTE | 2019-11-30 16:23 | NUR ---
PT Note PT rut completed. Patient is independent and safe with all mobility and gait without any AD. No further PT tx needed at this time. Addendum: 11/30/19 at 1624 by MAMADOU SOLIS PT Amended: Links added.
[2019-11-30] MEDS ORDERED: NS 275ml ONE (18:43)
[2019-11-30] MEDS ORDERED: Tubing IV Secondary IV ONE (18:43)
--- NOTE | 2019-11-30 19:30 | NUR ---
NURSE NOTES: Pt. received from DENIS Padilla. Pt. AAOx4, on room air, breathing is even and unlabored, no indications of respiratory distress, no active complaints of pain at this time. IV left hand 22g intact and patent, saline locked. Pt. NPO at midnight, discussed with pt. and pt. acknowledged and verbalized understanding. Bed low and locked, side rails x2 up, and call light in reach.
--- NOTE | 2019-11-30 19:56 | NUR ---
NURSE HAND-OFF REPORT: Important Events on Shift: nauseau >2 weeks Patient Status: fc, stable Diet: NPO at midnight, cont regular diet tmr Pending Orders: Pending Results/Labs: Pending MD notification: Latest Vital Signs: Temperature 97.5 , Pulse 69 , B/P 107 /62 , Respiratory Rate 20 , O2 SAT 96 , Room Air, O2 Flow Rate . Vital Sign Comment: EKG Rhythm: Sinus Rhythm Rhythm change?: N MD Notified?: N - MD Response: Latest Tristan Fall Score: 35 Fall Risk: Medium Risk Safety Measures: Call light Within Reach, Bed Alarm Zone 1, Side Rails Side Rails x2, Bed position Low and Locked. Fall Precautions: Patient Fall Education Report given to DENIS Duran.
[2019-11-30 20:00] VITALS: BP 111/57
[2019-11-30] MEDS: cefTRIAXone 1 GM in D5W 55 ML IVPB SCH (21:21)
[2019-12-01] VITALS: BP 120/74
[2019-12-01 04:00] VITALS: BP 125/71
[2019-12-01] MEDS: NovoLOG Insulin Flexpen SUBQ SCH ×4 (06:19→21:00)
[2019-12-01] MEDS: Heparin 5000 units/ml inj SUBQ SCH ×3 (06:21→21:23)
[2019-12-01 07:16] LABS: HEMOGLOBIN 13.6 G/DL (12.0-16.0); MEAN CORPUSCULAR VOLUME 87 FL (80-99); PLATELET COUNT 195 K/UL (150-450); RED BLOOD COUNT 4.62 M/UL (4.20-5.40); RED CELL DISTRIBUTION WIDTH 11.4 % (11.6-14.8); WHITE BLOOD COUNT 6.1 K/UL (4.8-10.8)
--- NOTE | 2019-12-01 07:17 | NUR ---
NURSE HAND-OFF REPORT: Important Events on Shift:[Pt. blood sugar controlled with insulin sliding scale, pt. kept NPO] Patient Status: stable Diet: NPO Pending Orders: CTA pelvis and abdomen Pending Results/Labs:CBC BMP Pending MD notification:na Latest Vital Signs: Temperature 97.7 , Pulse 74 , B/P 125 /71 , Respiratory Rate 18 , O2 SAT 95 , Room Air, O2 Flow Rate . Vital Sign Comment: stable EKG Rhythm: Sinus Rhythm Rhythm change?: N MD Notified?: N - MD Response: Latest Tristan Fall Score: 35 Fall Risk: Medium Risk Safety Measures: Call light Within Reach, Bed Alarm Zone 1, Side Rails Side Rails x2, Bed position Low and Locked. Fall Precautions: Patient Fall Education Report given to DENIS Padilla.
--- NOTE | 2019-12-01 07:21 | NUR ---
NURSE NOTES: Received update from DENIS Duran. Pt is stable and sleeping in bed. Pt IV on L hand asymptomatic and intact. skin intact. Pt NPO since midnight. Pt bed low and locked, call light in reach, and bed alarm on.
[2019-12-01 07:32] LABS: ANION GAP 10 mmol/L (5-15); BLOOD UREA NITROGEN 18 mg/dL (7-18); CALCIUM 9.1 MG/DL (8.5-10.1); CARBON DIOXIDE 27 MMOL/L (21-32); CHLORIDE 105 MMOL/L (98-107); CREATININE 0.7 MG/DL (0.55-1.30); POTASSIUM 3.9 MMOL/L (3.5-5.1); SODIUM 142 MMOL/L (136-145)
[2019-12-01 08:00] VITALS: BP 114/72
[2019-12-01] MEDS: Metoprolol Tartrate 100mg tab ORAL SCH (08:11)
[2019-12-01] MEDS: Aspirin Baby 81mg ORAL SCH (08:11)
--- NOTE | 2019-12-01 08:40 | NUR ---
CASE MANAGEMENT:REVIEW 12/01/19 SI: HYPOKALEMIA. DEHYDRATION. UTI 97.6 80 20 114/72 95% ON RA GLUCOSE+122 IS: IV ROCEPHIN Q24 HEPARIN SQ Q8HRS LOPRESSOR PO QD PROTONIX PO QD ASA PO QD NORVASC PO QD : TELEMETRY STATUS DCP: FROM HOME PLAN: NPO FOR CT ABD/PELVIS
--- NOTE | 2019-12-01 08:48 | NUR ---
DISCHARGE PLAN DISCUSSED WITH DR RAMIREZ YESTERDAY. PLAN IS TO DISCHARGE HOME TODAY AFTER CT ABD
[2019-12-01 12:00] VITALS: BP 113/57
--- NOTE | 2019-12-01 12:53 | Internal Med Progress Note ---
Subjective Date of Service: Dec 01, 2019 Physician Name Gomez Hickey Attending Physician Cecil Viera MD Current Medications Medications (Trade) Dose Ordered Sig/Sabas Route PRN Reason Start Time Stop Time Status Last Admin Dose Admin Acetaminophen (Tylenol) 650 mg Q4H PRN ORAL FEVER 11/29/19 08:30 12/29/19 08:29 Acetaminophen (Tylenol) 650 mg Q6H PRN ORAL For mild pain and temp>100.4 11/29/19 08:30 12/29/19 08:29 11/30/19 21:22 Acetaminophen/ Codeine Phosphate (Tylenol #3) 1 tab Q6H PRN ORAL For severe Pain 11/29/19 08:30 12/06/19 08:29 Albuterol/ Ipratropium (Albuterol/ Ipratropium) 3 ml Q4H PRN HHN Shortness of Breath 11/29/19 08:30 12/04/19 08:29 Amlodipine Besylate (Norvasc) 10 mg DAILY ORAL 11/29/19 09:00 12/29/19 08:59 11/30/19 08:23 Aspirin (ASA) 162 mg DAILY ORAL 11/29/19 09:00 01/13/20 08:59 12/01/19 08:11 Barium Sulfate (Readi-Cat 2) 450 ml NOW PRN ORAL Radiology Procedure 11/30/19 12:15 12/02/19 12:14 Ceftriaxone Sodium 1 gm/ Dextrose 55 ml @ 110 mls/hr Q24H IVPB 11/29/19 21:00 12/06/19 20:59 11/30/19 21:21 Dextrose (Dextrose 50%) 25 ml Q30M PRN IV Hypoglycemia 11/29/19 08:30 02/27/20 08:29 Dextrose (Dextrose 50%) 50 ml Q30M PRN IV Hypoglycemia 11/29/19 08:30 02/27/20 08:29 Diltiazem HCl (Cardizem) 10 mg Q1H PRN IV heart rate more than 120, 11/29/19 08:30 12/29/19 08:29 Enalaprilat (Vasotec) 2.5 mg Q6H PRN IV sbp more than 160 11/29/19 08:30 12/29/19 08:29 Heparin Sodium (Porcine) (Heparin 5000 units/ml) 5,000 units EVERY 8 HOURS SUBQ 11/29/19 14:00 01/13/20 13:59 12/01/19 06:21 Insulin Aspart (NovoLOG) BEFORE MEALS AND HS SUBQ 11/29/19 11:30 02/27/20 11:29 11/30/19 21:25 Iohexol (OMNIPAQUE-300 100ml) 100 ml NOW PRN INJ Radiology Procedure 11/30/19 12:15 12/02/19 12:14 Levothyroxine Sodium (Synthroid) 50 mcg DAILY@0630 ORAL 12/01/19 06:30 12/31/19 06:29 12/01/19 06:19 Metoprolol Tartrate (Lopressor) 100 mg DAILY ORAL 11/29/19 09:07 02/27/20 09:06 12/01/19 08:11 Nitroglycerin (Ntg) 0.4 mg Q5M PRN SL Prn Chest Pain 11/29/19 08:30 12/29/19 08:29 Ondansetron HCl (Zofran) 4 mg Q6H PRN IVP Nausea & Vomiting 11/29/19 08:30 12/29/19 08:29 11/30/19 08:22 Pantoprazole (Protonix) 40 mg DAILY ORAL 11/29/19 09:00 12/29/19 08:59 12/01/19 08:10 Polyethylene Glycol (Miralax) 17 gm DAILYPRN PRN ORAL Constipation 11/29/19 08:30 12/29/19 08:29 Temazepam (Restoril) 15 mg HSPRN PRN ORAL Insomnia 11/29/19 08:30 12/06/19 08:29 Allergies: Coded Allergies: No Known Allergies (Unverified , 11/29/19) ROS Limited/Unobtainable: No Constitutional: Reports: no symptoms HEENT: Reports: no symptoms Cardiovascular: Reports: no symptoms Respiratory: Reports: no symptoms Gastrointestinal/Abdominal: Reports: nausea Genitourinary: Reports: no symptoms Neurologic/Psychiatric: Reports: no symptoms Subjective 64 YO F admitted with palpitations. Now PVC's. Cover for Int Justice-DR Viera. C/O continuous nausea and vomiting for past few months Objective Last Vital Signs Date Time Temp Pulse Resp B/P (MAP) Pulse Ox O2 Delivery O2 Flow Rate FiO2 12/01/19 12:00 68 12/01/19 12:00 97.7 20 113/57 (75) 93 12/01/19 09:00 Room Air Laboratory Tests Test 11/30/19 16:17 11/30/19 21:20 12/01/19 05:41 12/01/19 06:18 POC Whole Blood Glucose 123 MG/DL (74-106) H 162 MG/DL (74-106) H Pending White Blood Count 6.1 K/UL (4.8-10.8) Red Blood Count 4.62 M/UL (4.20-5.40) Hemoglobin 13.6 G/DL (12.0-16.0) Hematocrit 40.0 % (37.0-47.0) Mean Corpuscular Volume 87 FL (80-99) Mean Corpuscular Hemoglobin 29.3 PG (27.0-31.0) Mean Corpuscular Hemoglobin Concent 33.9 G/DL (32.0-36.0) Red Cell Distribution Width 11.4 % (11.6-14.8) L Platelet Count 195 K/UL (150-450) Mean Platelet Volume 7.8 FL (6.5-10.1) Neutrophils (%) (Auto) % (45.0-75.0) Lymphocytes (%) (Auto) % (20.0-45.0) Monocytes (%) (Auto) % (1.0-10.0) Eosinophils (%) (Auto) % (0.0-3.0) Basophils (%) (Auto) % (0.0-2.0) Differential Total Cells Counted 100 Neutrophils % (Manual) 31 % (45-75) L Lymphocytes % (Manual) 59 % (20-45) H Monocytes % (Manual) 6 % (1-10) Eosinophils % (Manual) 4 % (0-3) H Basophils % (Manual) 0 % (0-2) Band Neutrophils 0 % (0-8) Platelet Estimate Adequate Platelet Morphology Normal Red Blood Cell Morphology Normal Sodium Level 142 MMOL/L (136-145) Potassium Level 3.9 MMOL/L (3.5-5.1) Chloride Level 105 MMOL/L (98-107) Carbon Dioxide Level 27 MMOL/L (21-32) Anion Gap 10 mmol/L (5-15) Blood Urea Nitrogen 18 mg/dL (7-18) Creatinine 0.7 MG/DL (0.55-1.30) Estimat Glomerular Filtration Rate > 60 mL/min (>60) Glucose Level 122 MG/DL (74-106) H Calcium Level 9.1 MG/DL (8.5-10.1) Microbiology Date/Time Source Procedure Growth Status 11/29/19 14:45 Urine,Clean Catch Urine Culture - Final NO GROWTH AFTER 48 HOURS Complete 11/29/19 04:32 Urine,Clean Catch Urine Culture - Final NO GROWTH AFTER 48 HOURS Complete 11/29/19 03:42 Nasopharynx SARS-CoV-2 RdRp Gene Assay - Final Complete Intake and Output 11/30/19 12/01/19 19:00 07:00 Intake Total 1000 ml Balance 1000 ml Intake Oral 1000 ml # Voids 3 2 # Bowel Movements 1 Objective PHYSICAL EXAMINATION: GENERAL: The patient is awake and responsive, in no acute distress. HEAD AND NECK: Pupils are equal and reactive to light. Extraocular movements are intact. Neck was supple. No JVD. LUNGS: Good air entry. No wheezing or rales. HEART: S1, S2. Regular rhythm. No gallops. ABDOMEN: Soft, nondistended, and nontender. Positive bowel sounds. EXTREMITIES: No cyanosis, clubbing, or edema. NEUROLOGIC: Cranial nerves II through XII grossly normal. Motor is 5/5 in all extremities. Gait is intact. RECTAL: Refused and deferred. GENITOURINARY: Refused and deferred. PSYCHIATRIC: Mood and affect is intact. Assessment/Plan Assessment/Plan ASSESSMENT: 1. Palpitation. 2. Hypokalemia. 3. Dehydration. 4. Acute urinary tract infection (culture=NG) 5. Diabetes type 2. 6. Hypertension. 7. Chronic Nausea and vomiting PLAN: 1. Admit the patient to monitored unit. 2. We will follow up potassium supplement. 3. Code status is Full Code. 4. DVT prophylaxis, heparin subcutaneous. 5. Broad spectrum antibiotic, Rocephin. 6. 2D echo LVEF=60-65% 7. Dr. Garcia=Pulmonary/Critical Care. 8. CT abdomen and pelvis pending-discussed with Patient daughter, Sue Mena-worried about cancer 9. GI=Gomez Majano MD Dec 01, 2019 12:53
--- NOTE | 2019-12-01 13:53 | Diagnostic Imaging Report ---
EXAM: CT Abdomen and Pelvis Without and With Intravenous Contrast CLINICAL HISTORY: N/V TECHNIQUE: Axial computed tomography images of the abdomen and pelvis without and with intravenous contrast. CTDI is 4.4 mGy and DLP is 224 mGy-cm. One or more of the following dose reduction techniques were used: automated exposure control, adjustment of the mA and/or kV according to patient size, use of iterative reconstruction technique. COMPARISON: None FINDINGS: Lung bases: Mild dependent atelectasis bilaterally. ABDOMEN: Liver: Hepatic steatosis. Gallbladder and bile ducts: Unremarkable. No calcified stones. No ductal dilation. Pancreas: Unremarkable. No mass. No ductal dilation. Spleen: Unremarkable. No splenomegaly. Adrenals: Unremarkable. No mass. Kidneys and ureters: No hydronephrosis or obstructing stone. Stomach and bowel: Prominence of the leavitt of the rectum and sigmoid colon may be secondary to underdistention. Colitis-proctitis is not excluded. Evaluation of the stomach is limited by under distention. No bowel obstruction. PELVIS: Appendix: Normal appendix. Bladder: Prominence of the wall of the bladder may be secondary to under distention. Please correlate with urinalysis if concerned for cystitis. No stones. Reproductive: Unremarkable as visualized. ABDOMEN and PELVIS: Intraperitoneal space: Unremarkable. No free air. No significant fluid collection. Bones/joints: Mild degenerative changes of the spine. No acute fracture. No dislocation. Soft tissues: Unremarkable. Vasculature: Atherosclerotic changes of the vasculature. No aortic aneurysm or dissection. Lymph nodes: Unremarkable. No enlarged lymph nodes. IMPRESSION: 1. Prominence of the leavitt of the rectum and sigmoid colon may be secondary to underdistention. Colitis-proctitis is not excluded. 2. Prominence of the wall of the bladder may be secondary to under distention. Please correlate with urinalysis if concerned for cystitis. 3. Hepatic steatosis.
--- NOTE | 2019-12-01 14:45 | General Progress Note ---
Subjective Allergies: Coded Allergies: No Known Allergies (Unverified , 11/29/19) Objective Last 24 Hour Vital Signs Date Time Temp Pulse Resp B/P (MAP) Pulse Ox O2 Delivery O2 Flow Rate FiO2 12/01/19 12:00 61 12/01/19 12:00 97.7 59 20 113/57 (75) 93 12/01/19 09:00 Room Air 12/01/19 08:11 80 114/72 12/01/19 08:11 80 114/72 12/01/19 08:00 69 12/01/19 08:00 97.6 80 20 114/72 (86) 95 12/01/19 04:00 74 12/01/19 04:00 97.7 74 18 125/71 (89) 95 12/01/19 00:00 97.9 61 20 120/74 (89) 94 12/01/19 00:00 61 11/30/19 21:00 Room Air 11/30/19 20:00 70 11/30/19 20:00 97.9 70 20 111/57 (75) 92 11/30/19 16:00 69 11/30/19 16:00 97.5 62 20 107/62 (77) 96 Intake and Output 11/30/19 12/01/19 19:00 07:00 Intake Total 1000 ml Balance 1000 ml Intake Oral 1000 ml # Voids 3 2 # Bowel Movements 1 Laboratory Tests 11/30/19 16:17: POC Whole Blood Glucose 123H 11/30/19 21:20: POC Whole Blood Glucose 162H 12/01/19 05:41: White Blood Count 6.1, Red Blood Count 4.62, Hemoglobin 13.6, Hematocrit 40.0, Mean Corpuscular Volume 87, Mean Corpuscular Hemoglobin 29.3, Mean Corpuscular Hemoglobin Concent 33.9, Red Cell Distribution Width 11.4L, Platelet Count 195, Mean Platelet Volume 7.8, Neutrophils (%) (Auto) , Lymphocytes (%) (Auto) , Monocytes (%) (Auto) , Eosinophils (%) (Auto) , Basophils (%) (Auto) , Differential Total Cells Counted 100, Neutrophils % (Manual) 31L, Lymphocytes % (Manual) 59H, Monocytes % (Manual) 6, Eosinophils % (Manual) 4H, Basophils % (Manual) 0, Band Neutrophils 0, Platelet Estimate Adequate, Platelet Morphology Normal, Red Blood Cell Morphology Normal, Sodium Level 142, Potassium Level 3.9, Chloride Level 105, Carbon Dioxide Level 27, Anion Gap 10, Blood Urea Nitrogen 18, Creatinine 0.7, Estimat Glomerular Filtration Rate > 60, Glucose Level 122H, Calcium Level 9.1 12/01/19 06:18: POC Whole Blood Glucose [Pending] Height (Feet): 5 Height (Inches): 1.00 Weight (Pounds): 130 Assessment/Plan Assessment/Plan: Assessment - 10 days of loose BM, now better - proctitis on CT - fatty liver per CT Recommendations - follow symptoms - check stool OB and C diff - possible GI endoscopy depending on results Thank you MD Sundar Kwok Payman MD Dec 01, 2019 14:45
[2019-12-01 16:00] VITALS: BP 141/70
--- NOTE | 2019-12-01 18:58 | NUR ---
NURSE HAND-OFF REPORT: Important Events on Shift: CT of abd/pelvis done, back to regular diet, stool collected, morning amlodipine held d/t low BP Patient Status: fc, stable Diet: ccho medium soft chew Pending Orders: Pending Results/Labs:stool x3 Pending MD notification: Latest Vital Signs: Temperature 98.0 , Pulse 76 , B/P 141 /70 , Respiratory Rate 20 , O2 SAT 94 , Room Air, O2 Flow Rate . Vital Sign Comment: EKG Rhythm: Sinus Rhythm Rhythm change?: N MD Notified?: N - MD Response: Latest Tristan Fall Score: 35 Fall Risk: Medium Risk Safety Measures: Call light Within Reach, Bed Alarm Zone 1, Side Rails Side Rails x2, Bed position Low and Locked. Fall Precautions: Patient Fall Education Report given to DENIS Duran.
--- NOTE | 2019-12-01 19:30 | NUR ---
NURSE NOTES: Pt. received from DENIS Padilla. Pt. AAOx4, on room air, breathing even and unlabored, no indications of respiratory distress, no indications of pain, no complaints of abdominal discomfort. Family at bedside. IV left hand 22g intact, saline locked. Bed low and locked, side rails x2 up, and call light in reach.
[2019-12-01 20:00] VITALS: BP 122/80
[2019-12-01] MEDS: cefTRIAXone 1 GM in D5W 55 ML IVPB SCH (21:18)
--- NOTE | 2019-12-01 22:00 | Consultation ---
DATE OF CONSULTATION: 12/01/2019 GASTROENTEROLOGY CONSULTATION REPORT CONSULTING PHYSICIAN: Ahsan Kwok MD. CHIEF COMPLAINT: I was asked to see this patient by Dr. Viera for evaluation of abnormal CT scan. HISTORY OF PRESENT ILLNESS: The patient is a pleasant 64-year-old Maltese woman who comes into the hospital due to palpitations and cardiac issues and dizziness. The patient was admitted to the hospital and she is undergoing cardiac evaluation and treatment. A CT scan of the abdomen pelvis has been done on this morning showing some thickening versus underdistention of the distal sigmoid and rectum. The patient does admit to having diarrhea over the past 10 days and since she has been in the hospital for about 2 days or so, the diarrhea has resolved. She denies any nausea, vomiting, abdominal pain, or other symptoms. She states she has had a colonoscopy about 2 years ago. She had antibiotics about a month or two ago for about 7 days. PAST MEDICAL HISTORY: Remarkable for history of hypertension, history of diabetes, history of urinary tract infection. MEDICATIONS: See the chart list for details. ALLERGIES: None. FAMILY HISTORY: Noncontributory. SOCIAL HISTORY: Patient is Maltese speaking. She does not smoke or drink. REVIEW OF SYSTEMS: Otherwise negative. PHYSICAL EXAMINATION: GENERAL: Pleasant Maltese woman, seen in her room. HEENT: Normocephalic and atraumatic. Sclerae anicteric. Oropharynx clear. NECK: Supple. CHEST: Clear to auscultation. CARDIOVASCULAR: Revealed a regular rate. ABDOMEN: Soft, nontender, nondistended with good bowel sounds. EXTREMITIES: Revealed no edema. LABORATORY DATA: Noted. ASSESSMENT: This patient presents with thickening versus underdistention of the rectosigmoid colon. This may be a nonspecific finding and may be due to nondistention. However, given the patient's recent diarrhea, there may be an infectious colitis. I would check the stools for culture and also for Clostridium difficile to ensure these infectious processes are not occurring. Since her symptoms have resolved, however, she has been watched off of therapy. In addition, I will check her stool for occult blood to rule out any gastrointestinal bleeding. The patient had a colonoscopy about 2 years ago and therefore an immediate consideration for colonoscopy is not needed. However, should there be heme-positive stools or recurrence of the diarrhea, then endoscopic evaluation can be considered. RECOMMENDATIONS: Per above discussion and per orders written in the chart. Thank you for asking me to participate in the care of this patient. Ahsan Kwok M.D. DR: CHANDRA JOB#: [id number] CC:
[2019-12-02] VITALS: BP 123/68
[2019-12-02 04:00] VITALS: BP 123/72
[2019-12-02] MEDS: NovoLOG Insulin Flexpen SUBQ SCH ×4 (05:49→21:00)
[2019-12-02] MEDS: Heparin 5000 units/ml inj SUBQ SCH ×3 (05:55→21:21)
[2019-12-02 07:23] LABS: BASOPHILS % (AUTO) 1.5 % (0.0-2.0); EOSINOPHILS % (AUTO) 3.6 % (0.0-3.0); HEMATOCRIT 38.2 % (37.0-47.0); HEMOGLOBIN 13.2 G/DL (12.0-16.0); LYMPHOCYTES % (AUTO) 45.7 % (20.0-45.0); MEAN CORPUSCULAR VOLUME 86 FL (80-99); MONOCYTES % (AUTO) 6.1 % (1.0-10.0); NEUTROPHILS % (AUTO) 43.1 % (45.0-75.0); PLATELET COUNT 201 K/UL (150-450); RED BLOOD COUNT 4.43 M/UL (4.20-5.40); RED CELL DISTRIBUTION WIDTH 11.2 % (11.6-14.8); WHITE BLOOD COUNT 5.1 K/UL (4.8-10.8)
[2019-12-02 07:25] LABS: AMYLASE 36 U/L (25-115); ANION GAP 9 mmol/L (5-15); BLOOD UREA NITROGEN 12 mg/dL (7-18); CALCIUM 8.3 MG/DL (8.5-10.1); CARBON DIOXIDE 28 MMOL/L (21-32); CHLORIDE 107 MMOL/L (98-107); CREATININE 0.7 MG/DL (0.55-1.30); POTASSIUM 4.1 MMOL/L (3.5-5.1); SODIUM 144 MMOL/L (136-145)
--- NOTE | 2019-12-02 07:30 | NUR ---
NURSE NOTES: PATIENT RECEIVED A/A/OX4, ABLE TO MAKE NEEDS KNOWN. ABLE TO SPEAK AND COMPREHEND IN [employer]. ESTONIAN IS PRIMARY LANGUAGE. AMBULATES WITH STEADY GAIT. PATIENT APPEARS PLEASANT AND COOPERATIVE. NO C/O PAIN/DISCOMFORT NOTED. NO ACUTE CARDIO-RESP DISTRESS INDICATED. APPETITE IS ADEQUATE. KEPT BED IN THE LOWEST POSITION. SIDERAILS ARE UPX2. CALL LIGHT IS WITHIN REACH. KEEP BED BRAKES AND LOCK MODE @ ALL TIMES. WILL CONT TO MONITOR
--- NOTE | 2019-12-02 07:36 | NUR ---
NURSE HAND-OFF REPORT: Important Events on Shift:[pt. stable through night, ambulatory to bathroom, administered tylenol x1 for pain as ordered, family was at bedside Patient Status: nausea at shift change, Dr. Sundar dial, endorsed to day shift Diet: regular Pending Orders: na Pending Results/Labs:na Pending MD notification:Dr. Sundar dial to speak with family Latest Vital Signs: Temperature 98.1 , Pulse 75 , B/P 123 /72 , Respiratory Rate 19 , O2 SAT 93 , Room Air, O2 Flow Rate . Vital Sign Comment: stable EKG Rhythm: Sinus Rhythm Rhythm change?: N MD Notified?: N - MD Response: Latest Tristan Fall Score: 35 Fall Risk: Medium Risk Safety Measures: Call light Within Reach, Bed Alarm Zone 1, Side Rails Side Rails x2, Bed position Low and Locked. Fall Precautions: Patient Fall Education Report given to DOLORES Evans.
[2019-12-02 07:53] VITALS: BP 156/89
[2019-12-02] MEDS: Aspirin Baby 81mg ORAL SCH (08:15)
[2019-12-02] MEDS: Metoprolol Tartrate 100mg tab ORAL SCH (08:15)
--- NOTE | 2019-12-02 11:24 | Pulmonology Progress Note ---
Subjective ROS Limited/Unobtainable: No Interval Events: episodes of sinus tachy Allergies: Coded Allergies: No Known Allergies (Unverified , 11/29/19) Objective Last 24 Hour Vital Signs Date Time Temp Pulse Resp B/P (MAP) Pulse Ox O2 Delivery O2 Flow Rate FiO2 12/02/19 09:33 Room Air 12/02/19 08:37 102 12/02/19 08:15 104 156/89 12/02/19 08:15 104 156/89 12/02/19 07:53 99.1 104 22 156/89 (111) 98 12/02/19 04:00 75 12/02/19 04:00 98.1 75 19 123/72 (89) 93 12/02/19 00:00 97.7 70 20 123/68 (86) 91 12/02/19 00:00 70 12/01/19 21:00 Room Air 12/01/19 20:00 82 12/01/19 20:00 97.5 82 19 122/80 (94) 96 12/01/19 16:00 76 12/01/19 16:00 98.0 70 20 141/70 (93) 94 12/01/19 12:00 61 12/01/19 12:00 97.7 59 20 113/57 (75) 93 Intake and Output 12/01/19 12/02/19 19:00 07:00 Intake Total 850 ml 355 ml Balance 850 ml 355 ml Intake Oral 850 ml 300 ml IV Total 55 ml # Voids 4 2 # Bowel Movements 1 General Appearance: WD/WN HEENT: normocephalic, atraumatic Respiratory: chest wall non-tender, lungs clear Cardiovascular: normal peripheral pulses, normal rate Abdomen: normal bowel sounds, soft, non tender Genitourinary: normal external genitalia Extremities: no cyanosis 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 Microbiology Date/Time Source Procedure Growth Status 12/01/19 18:10 Stool Clostridium difficile Toxin Assay - Final Complete 11/29/19 14:45 Urine,Clean Catch Urine Culture - Final NO GROWTH AFTER 48 HOURS Complete Laboratory Tests 12/01/19 16:59: POC Whole Blood Glucose 223H 12/01/19 18:10: Stool Occult Blood Negative 12/01/19 21:14: POC Whole Blood Glucose 136H 12/02/19 05:48: POC Whole Blood Glucose 136H 12/02/19 06:05: White Blood Count 5.1, Red Blood Count 4.43, Hemoglobin 13.2, Hematocrit 38.2, Mean Corpuscular Volume 86, Mean Corpuscular Hemoglobin 29.8, Mean Corpuscular Hemoglobin Concent 34.5, Red Cell Distribution Width 11.2L, Platelet Count 201, Mean Platelet Volume 8.5, Neutrophils (%) (Auto) 43.1L, Lymphocytes (%) (Auto) 45.7H, Monocytes (%) (Auto) 6.1, Eosinophils (%) (Auto) 3.6H, Basophils (%) (Auto) 1.5, Sodium Level 144, Potassium Level 4.1, Chloride Level 107, Carbon Dioxide Level 28, Anion Gap 9, Blood Urea Nitrogen 12, Creatinine 0.7, Estimat Glomerular Filtration Rate > 60, Glucose Level 131H, Calcium Level 8.3L, Amylase Level 36, Lipase 135 Current Medications Medications (Trade) Dose Ordered Sig/Sabas Route PRN Reason Start Time Stop Time Status Last Admin Dose Admin Acetaminophen (Tylenol) 650 mg Q4H PRN ORAL FEVER 11/29/19 08:30 12/29/19 08:29 Acetaminophen (Tylenol) 650 mg Q6H PRN ORAL For mild pain and temp>100.4 11/29/19 08:30 12/29/19 08:29 12/02/19 04:46 Acetaminophen/ Codeine Phosphate (Tylenol #3) 1 tab Q6H PRN ORAL For severe Pain 11/29/19 08:30 12/06/19 08:29 Albuterol/ Ipratropium (Albuterol/ Ipratropium) 3 ml Q4H PRN HHN Shortness of Breath 11/29/19 08:30 12/04/19 08:29 Amlodipine Besylate (Norvasc) 10 mg DAILY ORAL 11/29/19 09:00 12/29/19 08:59 12/02/19 08:15 Aspirin (ASA) 162 mg DAILY ORAL 11/29/19 09:00 01/13/20 08:59 12/02/19 08:15 Barium Sulfate (Readi-Cat 2) 450 ml NOW PRN ORAL Radiology Procedure 11/30/19 12:15 12/02/19 12:14 Ceftriaxone Sodium 1 gm/ Dextrose 55 ml @ 110 mls/hr Q24H IVPB 11/29/19 21:00 12/06/19 20:59 12/01/19 21:18 Dextrose (Dextrose 50%) 25 ml Q30M PRN IV Hypoglycemia 11/29/19 08:30 02/27/20 08:29 Dextrose (Dextrose 50%) 50 ml Q30M PRN IV Hypoglycemia 11/29/19 08:30 02/27/20 08:29 Diltiazem HCl (Cardizem) 10 mg Q1H PRN IV heart rate more than 120, 11/29/19 08:30 12/29/19 08:29 Enalaprilat (Vasotec) 2.5 mg Q6H PRN IV sbp more than 160 11/29/19 08:30 12/29/19 08:29 Heparin Sodium (Porcine) (Heparin 5000 units/ml) 5,000 units EVERY 8 HOURS SUBQ 11/29/19 14:00 01/13/20 13:59 12/02/19 05:55 Insulin Aspart (NovoLOG) BEFORE MEALS AND HS SUBQ 11/29/19 11:30 02/27/20 11:29 12/01/19 17:02 Iohexol (OMNIPAQUE-300 100ml) 100 ml NOW PRN INJ Radiology Procedure 11/30/19 12:15 12/02/19 12:14 Levothyroxine Sodium (Synthroid) 50 mcg DAILY@0630 ORAL 12/01/19 06:30 12/31/19 06:29 12/02/19 05:52 Metoprolol Tartrate (Lopressor) 100 mg DAILY ORAL 11/29/19 09:07 02/27/20 09:06 12/02/19 08:15 Nitroglycerin (Ntg) 0.4 mg Q5M PRN SL Prn Chest Pain 11/29/19 08:30 12/29/19 08:29 Ondansetron HCl (Zofran) 4 mg Q6H PRN IVP Nausea & Vomiting 11/29/19 08:30 12/29/19 08:29 11/30/19 08:22 Pantoprazole (Protonix) 40 mg DAILY ORAL 11/29/19 09:00 12/29/19 08:59 12/02/19 08:15 Polyethylene Glycol (Miralax) 17 gm DAILYPRN PRN ORAL Constipation 11/29/19 08:30 12/29/19 08:29 Temazepam (Restoril) 15 mg HSPRN PRN ORAL Insomnia 11/29/19 08:30 12/06/19 08:29 Assessment/Plan Problems: (1) Nausea & vomiting (2) Arrhythmia (3) History of hypertension (4) Diabetes mellitus Assessment/Plan CT scan reviewed GI consult reviewed awaiting cardio consult Echo reviewed Paulette Garcia MD Dec 02, 2019 11:24
[2019-12-02 11:47] VITALS: BP 121/64
--- NOTE | 2019-12-02 14:12 | NUR ---
CASE MANAGEMENT:REVIEW 12/02/19 SI: HYPOKALEMIA. DEHYDRATION. ARRHYTHMIA 99.1 104 22 156/89 98% ON RA IS: IV ROCEPHIN Q24 HEPARIN SQ Q8HRS LOPRESSOR PO QD PROTONIX PO QD ASA PO QD NORVASC PO QD : TELEMETRY STATUS DCP: FROM HOME PLAN: WAS SEEN BY GI AWAITING CARDIAC CONSULT
--- NOTE | 2019-12-02 14:19 | NUR ---
DISCHARGE PLANNING MD WILL NOT DISCHARGE UNTIL SEEN BY CYBER SECURITY ADMINISTRATOR (DR GARCIA)
[2019-12-02 16:00] VITALS: BP 119/60
--- NOTE | 2019-12-02 18:54 | Internal Med Progress Note ---
Subjective Date of Service: Dec 02, 2019 Physician Name Gomez Hickey Attending Physician Cecil Viera MD Current Medications Medications (Trade) Dose Ordered Sig/Sabas Route PRN Reason Start Time Stop Time Status Last Admin Dose Admin Acetaminophen (Tylenol) 650 mg Q4H PRN ORAL FEVER 11/29/19 08:30 12/29/19 08:29 Acetaminophen (Tylenol) 650 mg Q6H PRN ORAL For mild pain and temp>100.4 11/29/19 08:30 12/29/19 08:29 12/02/19 04:46 Acetaminophen/ Codeine Phosphate (Tylenol #3) 1 tab Q6H PRN ORAL For severe Pain 11/29/19 08:30 12/06/19 08:29 Albuterol/ Ipratropium (Albuterol/ Ipratropium) 3 ml Q4H PRN HHN Shortness of Breath 11/29/19 08:30 12/04/19 08:29 Amlodipine Besylate (Norvasc) 10 mg DAILY ORAL 11/29/19 09:00 12/29/19 08:59 12/02/19 08:15 Aspirin (ASA) 162 mg DAILY ORAL 11/29/19 09:00 01/13/20 08:59 12/02/19 08:15 Ceftriaxone Sodium 1 gm/ Dextrose 55 ml @ 110 mls/hr Q24H IVPB 11/29/19 21:00 12/06/19 20:59 12/01/19 21:18 Dextrose (Dextrose 50%) 25 ml Q30M PRN IV Hypoglycemia 11/29/19 08:30 02/27/20 08:29 Dextrose (Dextrose 50%) 50 ml Q30M PRN IV Hypoglycemia 11/29/19 08:30 02/27/20 08:29 Diltiazem HCl (Cardizem) 10 mg Q1H PRN IV heart rate more than 120, 11/29/19 08:30 12/29/19 08:29 Enalaprilat (Vasotec) 2.5 mg Q6H PRN IV sbp more than 160 11/29/19 08:30 12/29/19 08:29 Heparin Sodium (Porcine) (Heparin 5000 units/ml) 5,000 units EVERY 8 HOURS SUBQ 11/29/19 14:00 01/13/20 13:59 12/02/19 14:00 Insulin Aspart (NovoLOG) BEFORE MEALS AND HS SUBQ 11/29/19 11:30 02/27/20 11:29 12/01/19 17:02 Levothyroxine Sodium (Synthroid) 50 mcg DAILY@0630 ORAL 12/01/19 06:30 12/31/19 06:29 12/02/19 05:52 Metoprolol Tartrate (Lopressor) 100 mg DAILY ORAL 11/29/19 09:07 02/27/20 09:06 12/02/19 08:15 Nitroglycerin (Ntg) 0.4 mg Q5M PRN SL Prn Chest Pain 11/29/19 08:30 12/29/19 08:29 Ondansetron HCl (Zofran) 4 mg Q6H PRN IVP Nausea & Vomiting 11/29/19 08:30 12/29/19 08:29 12/02/19 12:22 Pantoprazole (Protonix) 40 mg DAILY ORAL 11/29/19 09:00 12/29/19 08:59 12/02/19 08:15 Polyethylene Glycol (Miralax) 17 gm DAILYPRN PRN ORAL Constipation 11/29/19 08:30 12/29/19 08:29 Temazepam (Restoril) 15 mg HSPRN PRN ORAL Insomnia 11/29/19 08:30 12/06/19 08:29 Allergies: Coded Allergies: No Known Allergies (Unverified , 11/29/19) ROS Limited/Unobtainable: No Constitutional: Reports: no symptoms HEENT: Reports: no symptoms Respiratory: Reports: no symptoms Gastrointestinal/Abdominal: Reports: nausea, vomiting Genitourinary: Reports: no symptoms Neurologic/Psychiatric: Reports: no symptoms Subjective 64 YO F admitted with palpitations. Now PVC's. Cover for Int Justice-DR Viera. C/ O continuous nausea and vomiting for past few months Objective Last Vital Signs Date Time Temp Pulse Resp B/P (MAP) Pulse Ox O2 Delivery O2 Flow Rate FiO2 12/02/19 16:50 63 12/02/19 16:00 99.0 19 119/60 (79) 98 12/02/19 09:33 Room Air Laboratory Tests Test 12/01/19 21:14 12/02/19 05:48 12/02/19 06:05 12/02/19 11:51 POC Whole Blood Glucose 136 MG/DL (74-106) H 136 MG/DL (74-106) H 138 MG/DL (74-106) H White Blood Count 5.1 K/UL (4.8-10.8) Red Blood Count 4.43 M/UL (4.20-5.40) Hemoglobin 13.2 G/DL (12.0-16.0) Hematocrit 38.2 % (37.0-47.0) Mean Corpuscular Volume 86 FL (80-99) Mean Corpuscular Hemoglobin 29.8 PG (27.0-31.0) Mean Corpuscular Hemoglobin Concent 34.5 G/DL (32.0-36.0) Red Cell Distribution Width 11.2 % (11.6-14.8) L Platelet Count 201 K/UL (150-450) Mean Platelet Volume 8.5 FL (6.5-10.1) Neutrophils (%) (Auto) 43.1 % (45.0-75.0) L Lymphocytes (%) (Auto) 45.7 % (20.0-45.0) H Monocytes (%) (Auto) 6.1 % (1.0-10.0) Eosinophils (%) (Auto) 3.6 % (0.0-3.0) H Basophils (%) (Auto) 1.5 % (0.0-2.0) Sodium Level 144 MMOL/L (136-145) Potassium Level 4.1 MMOL/L (3.5-5.1) Chloride Level 107 MMOL/L (98-107) Carbon Dioxide Level 28 MMOL/L (21-32) Anion Gap 9 mmol/L (5-15) Blood Urea Nitrogen 12 mg/dL (7-18) Creatinine 0.7 MG/DL (0.55-1.30) Estimat Glomerular Filtration Rate > 60 mL/min (>60) Glucose Level 131 MG/DL (74-106) H Calcium Level 8.3 MG/DL (8.5-10.1) L Amylase Level 36 U/L (25-115) Lipase 135 U/L (73-393) Test 12/02/19 16:24 POC Whole Blood Glucose 135 MG/DL (74-106) H Microbiology Date/Time Source Procedure Growth Status 12/01/19 18:10 Stool Clostridium difficile Toxin Assay - Final Complete Intake and Output 12/01/19 12/02/19 19:00 07:00 Intake Total 850 ml 355 ml Balance 850 ml 355 ml Intake Oral 850 ml 300 ml IV Total 55 ml # Voids 4 2 # Bowel Movements 1 Objective PHYSICAL EXAMINATION: GENERAL: The patient is awake and responsive, in no acute distress. HEAD AND NECK: Pupils are equal and reactive to light. Extraocular movements are intact. Neck was supple. No JVD. LUNGS: Good air entry. No wheezing or rales. HEART: S1, S2. Regular rhythm. No gallops. ABDOMEN: Soft, nondistended, and nontender. Positive bowel sounds. EXTREMITIES: No cyanosis, clubbing, or edema. NEUROLOGIC: Cranial nerves II through XII grossly normal. Motor is 5/5 in all extremities. Gait is intact. RECTAL: Refused and deferred. GENITOURINARY: Refused and deferred. PSYCHIATRIC: Mood and affect is intact. Assessment/Plan Assessment/Plan ASSESSMENT: 1. Palpitation. 2. Hypokalemia. 3. Dehydration. 4. Acute urinary tract infection (culture=NG) 5. Diabetes type 2. 6. Hypertension. 7. Chronic Nausea and vomiting PLAN: 1. Admit the patient to monitored unit. 2. We will follow up potassium supplement. 3. Code status is Full Code. 4. DVT prophylaxis, heparin subcutaneous. 5. Broad spectrum antibiotic, Rocephin. 6. 2D echo LVEF=60-65% 7. Dr. Garcia=Pulmonary/Critical Care. 8. CT abdomen and pelvis=possible colitis -discussed with Patient daughter, Sue Mena-worried about cancer 9. GI=Dr Kwok; await possible endoscopy 10. Cardiology=Gomez Carpenter MD Dec 02, 2019 18:54
--- NOTE | 2019-12-02 19:15 | NUR ---
NURSE HAND-OFF REPORT: Important Events on Shift:[safety, awaiting for cardio, labs monitoring accucheck] Patient Status: [stable] Diet: [[facility] MED] Pending Orders: [] Pending Results/Labs:[] Pending MD notification:[] Latest Vital Signs: Temperature 99.0 , Pulse 63 , B/P 119 /60 , Respiratory Rate 19 , O2 SAT 98 , Room Air, O2 Flow Rate . Vital Sign Comment: [] EKG Rhythm: Sinus Rhythm Rhythm change?: N MD Notified?: N - MD Response: Latest Tristan Fall Score: 35 Fall Risk: Medium Risk Safety Measures: Call light Within Reach, Bed Alarm Zone 1, Side Rails Side Rails x2, Bed position Low and Locked. Fall Precautions: Patient Fall Education Report given to [CALVIN].
--- NOTE | 2019-12-02 19:20 | NUR ---
NURSE NOTES: Report received from Cristina BERNAL. Patient is awake sitting at bed side chair, noted no acute distress patient is on room air. No signs of pain or discomfort noted. No pain reported at this time. IV site on left hand 22G S/L. Patient is able to steadily ambulant. Patient Flushed. No bleeding or erythema noted. Side Rails up x2 HOB elevated, bed is lock in lowest position. Patient was educated to use call light for assistance. Call light and belonging with in reach. Will continue with plans of care.
[2019-12-02 20:00] VITALS: BP 130/65
--- NOTE | 2019-12-02 20:20 | General Progress Note ---
Subjective Allergies: Coded Allergies: No Known Allergies (Unverified , 11/29/19) Subjective c/o nausea no diarrhea C Diff (-) stool Cx pending d/w DTR at length Objective Last 24 Hour Vital Signs Date Time Temp Pulse Resp B/P (MAP) Pulse Ox O2 Delivery O2 Flow Rate FiO2 12/02/19 19:57 65 18 98 Room Air 21 12/02/19 16:50 63 12/02/19 16:00 99.0 69 19 119/60 (79) 98 12/02/19 12:52 62 12/02/19 11:47 99.1 66 18 121/64 (83) 96 12/02/19 09:33 Room Air 12/02/19 08:37 102 12/02/19 08:15 104 156/89 12/02/19 08:15 104 156/89 12/02/19 07:53 99.1 104 22 156/89 (111) 98 12/02/19 04:00 75 12/02/19 04:00 98.1 75 19 123/72 (89) 93 12/02/19 00:00 97.7 70 20 123/68 (86) 91 12/02/19 00:00 70 12/01/19 21:00 Room Air Intake and Output 12/01/19 12/02/19 19:00 07:00 Intake Total 850 ml 355 ml Balance 850 ml 355 ml Intake Oral 850 ml 300 ml IV Total 55 ml # Voids 4 2 # Bowel Movements 1 Laboratory Tests 12/01/19 21:14: POC Whole Blood Glucose 136H 12/02/19 05:48: POC Whole Blood Glucose 136H 12/02/19 06:05: White Blood Count 5.1, Red Blood Count 4.43, Hemoglobin 13.2, Hematocrit 38.2, Mean Corpuscular Volume 86, Mean Corpuscular Hemoglobin 29.8, Mean Corpuscular Hemoglobin Concent 34.5, Red Cell Distribution Width 11.2L, Platelet Count 201, Mean Platelet Volume 8.5, Neutrophils (%) (Auto) 43.1L, Lymphocytes (%) (Auto) 45.7H, Monocytes (%) (Auto) 6.1, Eosinophils (%) (Auto) 3.6H, Basophils (%) (Auto) 1.5, Sodium Level 144, Potassium Level 4.1, Chloride Level 107, Carbon Dioxide Level 28, Anion Gap 9, Blood Urea Nitrogen 12, Creatinine 0.7, Estimat Glomerular Filtration Rate > 60, Glucose Level 131H, Calcium Level 8.3L, Amylase Level 36, Lipase 135 12/02/19 11:51: POC Whole Blood Glucose 138H 12/02/19 16:24: POC Whole Blood Glucose 135H Height (Feet): 5 Height (Inches): 1.00 Weight (Pounds): 130 Objective WDWN woman NCAT supple CTA RRR abd soft NT ND no edema Assessment/Plan Assessment/Plan: Assessment - 10 days of loose BM, now better - proctitis on CT - fatty liver per CT - nausea Recommendations - follow symptoms - check stool OB - monitor nausea - anti emetics - possible GI endoscopy depending on results Ahsan Kwok MD Dec 02, 2019 20:20
[2019-12-02] MEDS: cefTRIAXone 1 GM in D5W 55 ML IVPB SCH (21:18)
[2019-12-03] VITALS: BP 116/69
[2019-12-03 04:00] VITALS: BP 117/81
[2019-12-03] MEDS: Heparin 5000 units/ml inj SUBQ SCH ×3 (05:37→21:25)
[2019-12-03] MEDS: NovoLOG Insulin Flexpen SUBQ SCH ×4 (06:01→20:10)
[2019-12-03 07:25] LABS: BASOPHILS % (AUTO) 1.4 % (0.0-2.0); EOSINOPHILS % (AUTO) 3.7 % (0.0-3.0); HEMATOCRIT 37.6 % (37.0-47.0); HEMOGLOBIN 12.9 G/DL (12.0-16.0); LYMPHOCYTES % (AUTO) 51.9 % (20.0-45.0); MEAN CORPUSCULAR VOLUME 87 FL (80-99); MONOCYTES % (AUTO) 7.5 % (1.0-10.0); NEUTROPHILS % (AUTO) 35.5 % (45.0-75.0); PLATELET COUNT 196 K/UL (150-450); RED BLOOD COUNT 4.34 M/UL (4.20-5.40); RED CELL DISTRIBUTION WIDTH 11.5 % (11.6-14.8); WHITE BLOOD COUNT 4.8 K/UL (4.8-10.8)
--- NOTE | 2019-12-03 07:36 | NUR ---
NURSE HAND-OFF REPORT: Important Events on Shift: Patient work up in the AM with upset stomach. Patient Status: Stable Diet: CCHO medium soft easy chew Pending Orders: Pending Results/Labs: Pending MD notification: Latest Vital Signs: Temperature 96.8 , Pulse 61 , B/P 117 /81 , Respiratory Rate 17 , O2 SAT 95 , Room Air, O2 Flow Rate . Vital Sign Comment: EKG Rhythm: Sinus Rhythm Rhythm change?: N MD Notified?: N - MD Response: Latest Tristan Fall Score: 35 Fall Risk: Medium Risk Safety Measures: Call light Within Reach, Bed Alarm Zone 1, Side Rails Side Rails x2, Bed position Low and Locked. Fall Precautions: Patient Fall Education Report given to Olga Lidia BARRIOS.
[2019-12-03 07:40] LABS: ANION GAP 9 mmol/L (5-15); BLOOD UREA NITROGEN 15 mg/dL (7-18); CALCIUM 8.7 MG/DL (8.5-10.1); CARBON DIOXIDE 27 MMOL/L (21-32); CHLORIDE 107 MMOL/L (98-107); CREATININE 0.7 MG/DL (0.55-1.30); POTASSIUM 3.8 MMOL/L (3.5-5.1); SODIUM 143 MMOL/L (136-145)
--- NOTE | 2019-12-03 07:54 | NUR ---
NURSE NOTES: Received report from DENIS Brasher. Pt sleeping comfortably in bed. No s/s of acute respiratory and cardiac distress, On room air. SL on left hand asymptomatic, patent and intact. Bed in low position, side rails up x 2 and call light within reach. Will continue to monitor.
[2019-12-03 08:00] VITALS: BP 124/69
[2019-12-03] MEDS: Metoprolol Tartrate 100mg tab ORAL SCH (09:00)
[2019-12-03] MEDS: Aspirin Baby 81mg ORAL SCH (09:01)
[2019-12-03 12:00] VITALS: BP 138/68
--- NOTE | 2019-12-03 12:29 | Cardiology Progress Note ---
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 over 4 days of observation ekg normal tele neg tsh normal echo normal lv function nothing to pursuit at this time to fu with pmd ok to dc from cardiac view point Objective Last 24 Hour Vital Signs Date Time Temp Pulse Resp B/P (MAP) Pulse Ox O2 Delivery O2 Flow Rate FiO2 12/03/19 12:00 97.7 64 19 138/68 (91) 96 12/03/19 09:01 74 124/69 12/03/19 09:00 74 124/69 12/03/19 09:00 Room Air 12/03/19 08:00 60 12/03/19 08:00 98.1 74 18 124/69 (87) 96 12/03/19 04:00 61 12/03/19 04:00 96.8 83 17 117/81 (93) 95 12/03/19 00:00 96.8 63 17 116/69 (85) 94 12/03/19 00:00 55 12/02/19 21:00 Room Air 12/02/19 20:00 60 12/02/19 20:00 97.9 62 18 130/65 (86) 95 12/02/19 19:57 65 18 98 Room Air 21 12/02/19 16:50 63 12/02/19 16:00 99.0 69 19 119/60 (79) 98 12/02/19 12:52 62 Intake and Output 12/02/19 12/03/19 18:59 06:59 Intake Total 240 ml 220 ml Balance 240 ml 220 ml Intake Oral 240 ml 220 ml # Voids 3 2 Laboratory Tests Test 12/02/19 16:24 12/02/19 20:48 12/03/19 05:46 12/03/19 06:09 POC Whole Blood Glucose 135 MG/DL (74-106) H Pending 125 MG/DL (74-106) H White Blood Count 4.8 K/UL (4.8-10.8) Red Blood Count 4.34 M/UL (4.20-5.40) Hemoglobin 12.9 G/DL (12.0-16.0) Hematocrit 37.6 % (37.0-47.0) Mean Corpuscular Volume 87 FL (80-99) Mean Corpuscular Hemoglobin 29.6 PG (27.0-31.0) Mean Corpuscular Hemoglobin Concent 34.2 G/DL (32.0-36.0) Red Cell Distribution Width 11.5 % (11.6-14.8) L Platelet Count 196 K/UL (150-450) Mean Platelet Volume 8.3 FL (6.5-10.1) Neutrophils (%) (Auto) 35.5 % (45.0-75.0) L Lymphocytes (%) (Auto) 51.9 % (20.0-45.0) H Monocytes (%) (Auto) 7.5 % (1.0-10.0) Eosinophils (%) (Auto) 3.7 % (0.0-3.0) H Basophils (%) (Auto) 1.4 % (0.0-2.0) Sodium Level 143 MMOL/L (136-145) Potassium Level 3.8 MMOL/L (3.5-5.1) Chloride Level 107 MMOL/L (98-107) Carbon Dioxide Level 27 MMOL/L (21-32) Anion Gap 9 mmol/L (5-15) Blood Urea Nitrogen 15 mg/dL (7-18) Creatinine 0.7 MG/DL (0.55-1.30) Estimat Glomerular Filtration Rate > 60 mL/min (>60) Glucose Level 119 MG/DL (74-106) H Calcium Level 8.7 MG/DL (8.5-10.1) Test 12/03/19 11:04 POC Whole Blood Glucose 144 MG/DL (74-106) H Microbiology Date/Time Source Procedure Growth Status 12/01/19 18:10 Stool Clostridium difficile Toxin Assay - Final Complete Tomas York MD Dec 03, 2019 12:29
--- NOTE | 2019-12-03 13:14 | Pulmonology Progress Note ---
Subjective ROS Limited/Unobtainable: No Interval Events: episodes of sinus tachy Allergies: Coded Allergies: No Known Allergies (Unverified , 11/29/19) Objective Last 24 Hour Vital Signs Date Time Temp Pulse Resp B/P (MAP) Pulse Ox O2 Delivery O2 Flow Rate FiO2 12/03/19 12:00 97.7 64 19 138/68 (91) 96 12/03/19 12:00 61 12/03/19 09:01 74 124/69 12/03/19 09:00 74 124/69 12/03/19 09:00 Room Air 12/03/19 08:00 60 12/03/19 08:00 98.1 74 18 124/69 (87) 96 12/03/19 04:00 61 12/03/19 04:00 96.8 83 17 117/81 (93) 95 12/03/19 00:00 96.8 63 17 116/69 (85) 94 12/03/19 00:00 55 12/02/19 21:00 Room Air 12/02/19 20:00 60 12/02/19 20:00 97.9 62 18 130/65 (86) 95 12/02/19 19:57 65 18 98 Room Air 21 12/02/19 16:50 63 12/02/19 16:00 99.0 69 19 119/60 (79) 98 Intake and Output 12/02/19 12/03/19 19:00 07:00 Intake Total 240 ml 220 ml Balance 240 ml 220 ml Intake Oral 240 ml 220 ml # Voids 3 2 General Appearance: WD/WN HEENT: normocephalic, atraumatic Respiratory: chest wall non-tender, lungs clear Cardiovascular: normal peripheral pulses, normal rate Abdomen: normal bowel sounds, soft, non tender Genitourinary: normal external genitalia Extremities: no cyanosis 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 normal Microbiology Date/Time Source Procedure Growth Status 12/01/19 18:10 Stool Clostridium difficile Toxin Assay - Final Complete Laboratory Tests 12/02/19 16:24: POC Whole Blood Glucose 135H 12/02/19 20:48: POC Whole Blood Glucose [Pending] 12/03/19 05:46: POC Whole Blood Glucose 125H 12/03/19 06:09: White Blood Count 4.8, Red Blood Count 4.34, Hemoglobin 12.9, Hematocrit 37.6, Mean Corpuscular Volume 87, Mean Corpuscular Hemoglobin 29.6, Mean Corpuscular Hemoglobin Concent 34.2, Red Cell Distribution Width 11.5L, Platelet Count 196, Mean Platelet Volume 8.3, Neutrophils (%) (Auto) 35.5L, Lymphocytes (%) (Auto) 51.9H, Monocytes (%) (Auto) 7.5, Eosinophils (%) (Auto) 3.7H, Basophils (%) (Auto) 1.4, Sodium Level 143, Potassium Level 3.8, Chloride Level 107, Carbon Dioxide Level 27, Anion Gap 9, Blood Urea Nitrogen 15, Creatinine 0.7, Estimat Glomerular Filtration Rate > 60, Glucose Level 119H, Calcium Level 8.7 12/03/19 11:04: POC Whole Blood Glucose 144H Current Medications Medications (Trade) Dose Ordered Sig/Sabas Route PRN Reason Start Time Stop Time Status Last Admin Dose Admin Acetaminophen (Tylenol) 650 mg Q4H PRN ORAL FEVER 11/29/19 08:30 12/29/19 08:29 Acetaminophen (Tylenol) 650 mg Q6H PRN ORAL For mild pain and temp>100.4 11/29/19 08:30 12/29/19 08:29 12/02/19 04:46 Acetaminophen/ Codeine Phosphate (Tylenol #3) 1 tab Q6H PRN ORAL For severe Pain 11/29/19 08:30 12/06/19 08:29 Albuterol/ Ipratropium (Albuterol/ Ipratropium) 3 ml Q4H PRN HHN Shortness of Breath 11/29/19 08:30 12/04/19 08:29 Amlodipine Besylate (Norvasc) 10 mg DAILY ORAL 11/29/19 09:00 12/29/19 08:59 12/03/19 09:01 Aspirin (ASA) 162 mg DAILY ORAL 11/29/19 09:00 01/13/20 08:59 12/03/19 09:01 Ceftriaxone Sodium 1 gm/ Dextrose 55 ml @ 110 mls/hr Q24H IVPB 11/29/19 21:00 12/06/19 20:59 12/02/19 21:18 Dextrose (Dextrose 50%) 25 ml Q30M PRN IV Hypoglycemia 9/25/20 08:30 02/27/20 08:29 Dextrose (Dextrose 50%) 50 ml Q30M PRN IV Hypoglycemia 11/29/19 08:30 02/27/20 08:29 Diltiazem HCl (Cardizem) 10 mg Q1H PRN IV heart rate more than 120, 11/29/19 08:30 12/29/19 08:29 Enalaprilat (Vasotec) 2.5 mg Q6H PRN IV sbp more than 160 11/29/19 08:30 12/29/19 08:29 Heparin Sodium (Porcine) (Heparin 5000 units/ml) 5,000 units EVERY 8 HOURS SUBQ 11/29/19 14:00 01/13/20 13:59 12/03/19 05:37 Insulin Aspart (NovoLOG) BEFORE MEALS AND HS SUBQ 11/29/19 11:30 02/27/20 11:29 12/03/19 11:44 Levothyroxine Sodium (Synthroid) 50 mcg DAILY@0630 ORAL 12/01/19 06:30 12/31/19 06:29 12/03/19 06:01 Metoprolol Tartrate (Lopressor) 100 mg DAILY ORAL 11/29/19 09:07 02/27/20 09:06 12/03/19 09:00 Nitroglycerin (Ntg) 0.4 mg Q5M PRN SL Prn Chest Pain 11/29/19 08:30 12/29/19 08:29 Ondansetron HCl (Zofran) 4 mg Q6H PRN IVP Nausea & Vomiting 11/29/19 08:30 12/29/19 08:29 12/03/19 11:51 Pantoprazole (Protonix) 40 mg DAILY ORAL 11/29/19 09:00 12/29/19 08:59 12/03/19 09:01 Polyethylene Glycol (Miralax) 17 gm DAILYPRN PRN ORAL Constipation 11/29/19 08:30 12/29/19 08:29 Temazepam (Restoril) 15 mg HSPRN PRN ORAL Insomnia 11/29/19 08:30 12/06/19 08:29 Assessment/Plan Problems: (1) Nausea & vomiting (2) Arrhythmia (3) History of hypertension (4) Diabetes mellitus Assessment/Plan doing better cardio note reviewed GI consult reviewed awaiting cardio consult Echo reviewed Paulette Garcia MD Dec 03, 2019 13:14
--- NOTE | 2019-12-03 13:15 | General Progress Note ---
Subjective ROS Limited/Unobtainable: Yes Allergies: Coded Allergies: No Known Allergies (Unverified , 11/29/19) Objective Last 24 Hour Vital Signs Date Time Temp Pulse Resp B/P (MAP) Pulse Ox O2 Delivery O2 Flow Rate FiO2 12/03/19 12:00 97.7 64 19 138/68 (91) 96 12/03/19 12:00 61 12/03/19 09:01 74 124/69 12/03/19 09:00 74 124/69 12/03/19 09:00 Room Air 12/03/19 08:00 60 12/03/19 08:00 98.1 74 18 124/69 (87) 96 12/03/19 04:00 61 12/03/19 04:00 96.8 83 17 117/81 (93) 95 12/03/19 00:00 96.8 63 17 116/69 (85) 94 12/03/19 00:00 55 12/02/19 21:00 Room Air 12/02/19 20:00 60 12/02/19 20:00 97.9 62 18 130/65 (86) 95 12/02/19 19:57 65 18 98 Room Air 21 12/02/19 16:50 63 12/02/19 16:00 99.0 69 19 119/60 (79) 98 Intake and Output 12/02/19 12/03/19 19:00 07:00 Intake Total 240 ml 220 ml Balance 240 ml 220 ml Intake Oral 240 ml 220 ml # Voids 3 2 Laboratory Tests 12/02/19 16:24: POC Whole Blood Glucose 135H 12/02/19 20:48: POC Whole Blood Glucose [Pending] 12/03/19 05:46: POC Whole Blood Glucose 125H 12/03/19 06:09: White Blood Count 4.8, Red Blood Count 4.34, Hemoglobin 12.9, Hematocrit 37.6, M lisandra Corpuscular Volume 87, Mean Corpuscular Hemoglobin 29.6, Mean Corpuscular Hemoglobin Concent 34.2, Red Cell Distribution Width 11.5L, Platelet Count 196, Mean Platelet Volume 8.3, Neutrophils (%) (Auto) 35.5L, Lymphocytes (%) (Auto) 51.9H, Monocytes (%) (Auto) 7.5, Eosinophils (%) (Auto) 3.7H, Basophils (%) (Auto) 1.4, Sodium Level 143, Potassium Level 3.8, Chloride Level 107, Carbon Dioxide Level 27, Anion Gap 9, Blood Urea Nitrogen 15, Creatinine 0.7, Estimat Glomerular Filtration Rate > 60, Glucose Level 119H, Calcium Level 8.7 12/03/19 11:04: POC Whole Blood Glucose 144H Height (Feet): 5 Height (Inches): 1.00 Weight (Pounds): 130 General Appearance: no apparent distress EENT: normal ENT inspection Neck: supple Cardiovascular: normal rate Respiratory/Chest: decreased breath sounds Abdomen: normal bowel sounds, non tender, soft Extremities: non-tender Assessment/Plan Assessment/Plan: Assessment/Plan Assessment/Plan: Assessment - 10 days of loose BM, now better - proctitis on CT - fatty liver per CT - nausea -DM Recommendations - follow symptoms - check stool OB -C. diff neg - monitor nausea - anti emetics -add low dose reglan - possible GI endoscopy depending on results Alexander Sanders MD Dec 03, 2019 13:15
--- NOTE | 2019-12-03 15:51 | NUR ---
CASE MANAGEMENT: REVIEW SI: ARRHYTHMIA . N/V . DM T 96.8 HR 55 RR 17 BP 116/69 SAT 94% ROOM AIR GLUCOSE 144 IS: ROCEPHIN IV Q24HR LOPRESSOR PO QD NITROGLYCERIN PRN CARDIZEM IV PRN TELEMETRY UNIT STATUS DCP: PATIENT IS FROM HOME
[2019-12-03 16:00] VITALS: BP 117/69
--- NOTE | 2019-12-03 17:00 | Internal Med Progress Note ---
Subjective Date of Service: Dec 03, 2019 Physician Name Gomez Hickey Attending Physician Cecil Viera MD Current Medications Medications (Trade) Dose Ordered Sig/Sabas Route PRN Reason Start Time Stop Time Status Last Admin Dose Admin Acetaminophen (Tylenol) 650 mg Q4H PRN ORAL FEVER 11/29/19 08:30 12/29/19 08:29 Acetaminophen (Tylenol) 650 mg Q6H PRN ORAL For mild pain and temp>100.4 11/29/19 08:30 12/29/19 08:29 12/02/19 04:46 Acetaminophen/ Codeine Phosphate (Tylenol #3) 1 tab Q6H PRN ORAL For severe Pain 11/29/19 08:30 12/06/19 08:29 Albuterol/ Ipratropium (Albuterol/ Ipratropium) 3 ml Q4H PRN HHN Shortness of Breath 11/29/19 08:30 12/04/19 08:29 Amlodipine Besylate (Norvasc) 10 mg DAILY ORAL 11/29/19 09:00 12/29/19 08:59 12/03/19 09:01 Aspirin (ASA) 162 mg DAILY ORAL 11/29/19 09:00 01/13/20 08:59 12/03/19 09:01 Ceftriaxone Sodium 1 gm/ Dextrose 55 ml @ 110 mls/hr Q24H IVPB 11/29/19 21:00 12/06/19 20:59 12/02/19 21:18 Dextrose (Dextrose 50%) 25 ml Q30M PRN IV Hypoglycemia 11/29/19 08:30 02/27/20 08:29 Dextrose (Dextrose 50%) 50 ml Q30M PRN IV Hypoglycemia 11/29/19 08:30 02/27/20 08:29 Diltiazem HCl (Cardizem) 10 mg Q1H PRN IV heart rate more than 120, 11/29/19 08:30 12/29/19 08:29 Enalaprilat (Vasotec) 2.5 mg Q6H PRN IV sbp more than 160 11/29/19 08:30 12/29/19 08:29 Heparin Sodium (Porcine) (Heparin 5000 units/ml) 5,000 units EVERY 8 HOURS SUBQ 11/29/19 14:00 01/13/20 13:59 12/03/19 14:00 Insulin Aspart (NovoLOG) BEFORE MEALS AND HS SUBQ 11/29/19 11:30 02/27/20 11:29 12/03/19 11:44 Levothyroxine Sodium (Synthroid) 50 mcg DAILY@0630 ORAL 12/01/19 06:30 12/31/19 06:29 12/03/19 06:01 Metoclopramide HCl (Reglan) 5 mg EVERY 6 HOURS NG 12/03/19 18:00 01/02/20 17:59 Metoprolol Tartrate (Lopressor) 100 mg DAILY ORAL 11/29/19 09:07 02/27/20 09:06 12/03/19 09:00 Nitroglycerin (Ntg) 0.4 mg Q5M PRN SL Prn Chest Pain 11/29/19 08:30 12/29/19 08:29 Ondansetron HCl (Zofran) 4 mg Q6H PRN IVP Nausea & Vomiting 11/29/19 08:30 12/29/19 08:29 12/03/19 11:51 Pantoprazole (Protonix) 40 mg DAILY ORAL 11/29/19 09:00 12/29/19 08:59 12/03/19 09:01 Temazepam (Restoril) 15 mg HSPRN PRN ORAL Insomnia 11/29/19 08:30 12/06/19 08:29 Allergies: Coded Allergies: No Known Allergies (Unverified , 11/29/19) ROS Limited/Unobtainable: No Constitutional: Reports: no symptoms HEENT: Reports: no symptoms Cardiovascular: Reports: no symptoms Respiratory: Reports: no symptoms Gastrointestinal/Abdominal: Reports: no symptoms Genitourinary: Reports: no symptoms Neurologic/Psychiatric: Reports: no symptoms Subjective 64 YO F admitted with palpitations. Now PVC's. Cover for Int Shaan Viera. C/O continuous nausea and vomiting for past few months Objective Last Vital Signs Date Time Temp Pulse Resp B/P (MAP) Pulse Ox O2 Delivery O2 Flow Rate FiO2 12/03/19 12:00 97.7 64 19 138/68 (91) 96 12/03/19 09:00 Room Air 12/02/19 19:57 21 Laboratory Tests Test 12/02/19 20:48 12/03/19 05:46 12/03/19 06:09 12/03/19 11:04 POC Whole Blood Glucose Pending 125 MG/DL (74-106) H 144 MG/DL (74-106) H White Blood Count 4.8 K/UL (4.8-10.8) Red Blood Count 4.34 M/UL (4.20-5.40) Hemoglobin 12.9 G/DL (12.0-16.0) Hematocrit 37.6 % (37.0-47.0) Mean Corpuscular Volume 87 FL (80-99) Mean Corpuscular Hemoglobin 29.6 PG (27.0-31.0) Mean Corpuscular Hemoglobin Concent 34.2 G/DL (32.0-36.0) Red Cell Distribution Width 11.5 % (11.6-14.8) L Platelet Count 196 K/UL (150-450) Mean Platelet Volume 8.3 FL (6.5-10.1) Neutrophils (%) (Auto) 35.5 % (45.0-75.0) L Lymphocytes (%) (Auto) 51.9 % (20.0-45.0) H Monocytes (%) (Auto) 7.5 % (1.0-10.0) Eosinophils (%) (Auto) 3.7 % (0.0-3.0) H Basophils (%) (Auto) 1.4 % (0.0-2.0) Sodium Level 143 MMOL/L (136-145) Potassium Level 3.8 MMOL/L (3.5-5.1) Chloride Level 107 MMOL/L (98-107) Carbon Dioxide Level 27 MMOL/L (21-32) Anion Gap 9 mmol/L (5-15) Blood Urea Nitrogen 15 mg/dL (7-18) Creatinine 0.7 MG/DL (0.55-1.30) Estimat Glomerular Filtration Rate > 60 mL/min (>60) Glucose Level 119 MG/DL (74-106) H Calcium Level 8.7 MG/DL (8.5-10.1) Test 12/03/19 16:29 POC Whole Blood Glucose 169 MG/DL (74-106) H Microbiology Date/Time Source Procedure Growth Status 12/01/19 18:10 Stool Clostridium difficile Toxin Assay - Final Complete Intake and Output 12/02/19 12/03/19 19:00 07:00 Intake Total 240 ml 220 ml Balance 240 ml 220 ml Intake Oral 240 ml 220 ml # Voids 3 2 Objective PHYSICAL EXAMINATION: GENERAL: The patient is awake and responsive, in no acute distress. HEAD AND NECK: Pupils are equal and reactive to light. Extraocular movements are intact. Neck was supple. No JVD. LUNGS: Good air entry. No wheezing or rales. HEART: S1, S2. Regular rhythm. No gallops. ABDOMEN: Soft, nondistended, and nontender. Positive bowel sounds. EXTREMITIES: No cyanosis, clubbing, or edema. NEUROLOGIC: Cranial nerves II through XII grossly normal. Motor is 5/5 in all extremities. Gait is intact. RECTAL: Refused and deferred. GENITOURINARY: Refused and deferred. PSYCHIATRIC: Mood and affect is intact. Assessment/Plan Assessment/Plan ASSESSMENT: 1. Palpitation. 2. Hypokalemia. 3. Dehydration. 4. Acute urinary tract infection (culture=NG) 5. Diabetes type 2. 6. Hypertension. 7. Chronic Nausea and vomiting PLAN: 1. Admit the patient to monitored unit. 2. We will follow up potassium supplement. 3. Code status is Full Code. 4. DVT prophylaxis, heparin subcutaneous. 5. Broad spectrum antibiotic, Rocephin. 6. 2D echo LVEF=60-65% 7. Dr. Garcia=Pulmonary/Critical Care. 8. CT abdomen and pelvis=possible colitis -discussed with Patient daughter, Sue Mena-worried about cancer 9. GI=Dr Kwok; await possible endoscopy 10. Cardiology=Dr York-no further workup at this time Gomez Hickey MD Dec 03, 2019 17:00
[2019-12-03] MEDS: Metoclopramide 10mg/10ml Liq NG SCH (17:27)
--- NOTE | 2019-12-03 18:00 | Consultation ---
DATE OF CONSULTATION: 12/03/2019 CARDIOLOGY CONSULTATION CONSULTING PHYSICIAN: Toams York MD. REFERRING PHYSICIAN: Cecil Viera MD and Paulette Garcia MD. REASON FOR REFERRAL: Arrhythmias. HISTORY OF PRESENT ILLNESS: This is a 64-year-old female who is Chinese speaking. Information is obtained from the patient directly and from review of the patient's chart. The information from the patient is through one of our staff who speaks Chinese. The patient presented to the hospital because of abdominal pain followed by nausea and some palpitations for approximately 10 minutes. She was brought to the emergency room at [facility] where she was admitted and evaluation for palpitations. She was noted to have some premature ventricular complexes and has been admitted to the hospital. She has been here for the past few days. She is feeling fine at the present time. She is usually active with walking normal speed flat surface and when she does walk, she does increase her heart rate she says, but she never had palpitations and had any pain pressure, tightness, or heaviness in her chest. No shortness of breath. She has had one episode when she woke up in the middle of the night because of shortness of breath, sat up, took some deep breaths, and was able to go back to bed. Uses 1 very flat pillow according to herself and she does not stand up quickly and only episode of palpitation was occurred on that day. The chart indicates that the patient had palpitation for 2 days that got worse on the night, so she was admitted. She has had apparently some diarrhea, brown in color stools, and she was started on Keflex. Diarrhea apparently got better. She denied any abdominal pain associated with all of that. According to the emergency room physician, the patient was apparently seen by an outpatient clinic that started on some Keflex, the indication for Keflex is really not known to me. He indicates that patient has been here for the past 3 to 4 days and done well. PAST MEDICAL HISTORY: She does have history of diabetes and high blood pressure. She denies any history of hyperlipidemia. No history of heart attack or cancer or stroke or hepatitis or tuberculosis. No history of asthma. No stomach ulcers. No kidney problems or liver problems. Patient indicates she does have a history of rectal bleeding a few years ago and apparently workup according to her was negative. ALLERGIES: She is not allergic to any medications. SOCIAL HISTORY: She does not smoke or drink alcoholic beverages. Never did. REVIEW OF SYSTEMS: GASTROINTESTINAL: As mentioned above. GENITOURINARY: Negative. PULMONARY: Negative. CONSTITUTIONAL: Negative. PHYSICAL EXAMINATION: GENERAL: Shows to be a middle-aged female, in no respiratory distress, comfortable sitting up, eating her lunch. NECK: Supple. No jugular venous distention. LUNGS: Clear to auscultation and percussion. CARDIAC: S1 is normal. S2 is normal. Regular rate and rhythm. No heaves, thrills, gallops, or rubs are noted. ABDOMEN: Soft, nontender. Positive bowel sounds. EXTREMITIES: There is no edema. NEUROLOGIC: She is awake, alert, and responsive. LABORATORY AND DIAGNOSTIC DATA: Her white count of 4.8, hemoglobin of 12.9, and platelet count of 196. Her sodium 143, potassium 3.8, chloride 107, bicarb 27, BUN 15, creatinine 0.7, and glucose of 119. Her blood sugars have been anywhere between 125 to 162. Her potassium at the time of admission was down to 3.1, subsequently today is 3.8, that has been as high as 4.1. Her magnesium at the time of admission was 1.8, subsequently 2.1. Her creatinine has been relatively stable since admission. She did have thyroid-stimulating hormones checked earlier in the hospitalization and that level was 2.086. Total cholesterol 207 with LDL of 138 and HDL of 48. Troponin negative on one occasion when she first presented. Liver function tests were all normal. Her echocardiogram performed on 11/29/2019 shows normal left ventricular systolic function. No significant valvular regurgitation. Her EKG in the emergency room shows normal sinus rhythm, normal QRS axis, no ST or T-wave abnormalities. Telemetry data also sinus rhythm. There is no evidence of any bradycardia or tachycardia or AFib or other arrhythmias noted on any of the rhythm strips since she has been here for the past few days. Her free T4 was normal at 1.18 and free T3 was normal at 3.0. She did have some imaging chest x-ray that showed no acute cardiopulmonary disease process and her final echocardiogram was interpreted as showing ejection fraction of 60 to 65% with trace to mild tricuspid regurgitation. She did have a CT scan of the abdomen and pelvis. Lung bases were dependent atelectasis. Prominence wall of the rectum and sigmoid colon, may be secondary to underdistention, wall of the bladder secondary to underdistention as well and felt to be possible hepatic steatosis. ASSESSMENT AND PLAN: 1. Palpitations. Reported premature ventricular complexes noted in the emergency room. 2. Abdominal pain. 3. Diabetes. 4. Hypertension. Dr. Garcia and Dr. Viera, this patient was seen in cardiac consultation. She did have symptoms prior to being admitted to the hospital. However, since she has been in the hospital no arrhythmias have been noted. Her left ventricular systolic function was . Electrolytes were minimally abnormal. Those have been corrected. I see no further indication for her to need any cardiac workup at this time and she may follow with her primary care doctor as an outpatient in the future. Her blood pressure at this time appears to be well controlled and her heart rate in the 70s. Her blood pressure medications should be continued at she is receiving them here. Her home medications apparently included amlodipine 10 mg, metoprolol 100 mg, and she was taking cephalexin as well as metformin 500 mg daily. She is receiving those medications at the present time and she is doing well. Tomas York M.D. DR: KARLY JOB#: [id number] CC:
--- NOTE | 2019-12-03 19:20 | NUR ---
NURSE NOTES: Report received from Cony BARRIOS. Patient is noted to be awake and alert x 4. Patient is noted to be on room air. Denies shortness of breath and chest pain at this time. No reports of nausea. Was endorsed to Florentino BARRIOS that patient does have complaints of nausea at times and has PRN Zofran. Endorsed to Florentino BARRIOS that patient has steady gait and ambulates to bathroom independently. Patient is noted to have left hand 22 ronaldo IV access. Bed is locked and in lowest position. Call light in reach. Will continue to follow plan of care.
--- NOTE | 2019-12-03 19:27 | NUR ---
NURSE HAND-OFF REPORT: Important Events on Shift:[] Patient Status: [] Diet: [] Pending Orders: [] Pending Results/Labs:[] Pending MD notification:[] Latest Vital Signs: Temperature 96.7 , Pulse 63 , B/P 117 /69 , Respiratory Rate 20 , O2 SAT 97 , Room Air, O2 Flow Rate . Vital Sign Comment: [] EKG Rhythm: Sinus Rhythm Rhythm change?: N MD Notified?: N - MD Response: Latest Tristan Fall Score: 35 Fall Risk: Medium Risk Safety Measures: Call light Within Reach, Bed Alarm Zone 1, Side Rails Side Rails x2, Bed position Low and Locked. Fall Precautions: Patient Fall Education Report given to [DENIS Good].
[2019-12-03 20:00] VITALS: BP 145/65
[2019-12-03] MEDS: cefTRIAXone 1 GM in D5W 55 ML IVPB SCH (20:15)
[2019-12-04] VITALS: BP 139/52
[2019-12-04] MEDS: Metoclopramide 10mg/10ml Liq NG SCH ×3 (00:36→12:06)
[2019-12-04 04:00] VITALS: BP 117/55
[2019-12-04] MEDS: Heparin 5000 units/ml inj SUBQ SCH ×2 (05:52→14:50)
[2019-12-04] MEDS: NovoLOG Insulin Flexpen SUBQ SCH ×2 (06:03→11:30)
--- NOTE | 2019-12-04 07:23 | NUR ---
NURSE HAND-OFF REPORT: Important Events on Shift: Patient was stable throughout the night. no complaints of nausea or chest pain. currently waiting on stool culture results. Patient Status: full code Diet: CCHO M Pending Orders: none Pending Results/Labs:stool culture Pending MD notification: none Latest Vital Signs: Temperature 98.8 , Pulse 64 , B/P 117 /55 , Respiratory Rate 15 , O2 SAT 99 , Room Air, O2 Flow Rate . Vital Sign Comment: within normal limits. EKG Rhythm: Sinus Rhythm Rhythm change?: N MD Notified?: N - MD Response: Latest Tristan Fall Score: 20 Fall Risk: Low Risk Safety Measures: Call light Within Reach, Bed Alarm Zone 1, Side Rails Side Rails x2, Bed position Low and Locked. Fall Precautions: Patient Fall Education Report given to Brenda BARRIOS.
--- NOTE | 2019-12-04 07:25 | NUR ---
NURSE NOTES: Received report from Florentino/RN, Observed patient asleep, lying semi-arceo's, resting comfortably. On room air, no acute distress/SOB noted at this time. IV site patent and intact. Bed in low position and locked, Call light within reach. Encouraged to use call light when needed. Bed alarm is on, side rails up x3. Will continue plan of care.
[2019-12-04 08:00] VITALS: BP 121/60
--- NOTE | 2019-12-04 09:02 | Pulmonology Progress Note ---
Subjective ROS Limited/Unobtainable: No Interval Events: episodes of sinus tachy Allergies: Coded Allergies: No Known Allergies (Unverified , 11/29/19) Objective Last 24 Hour Vital Signs Date Time Temp Pulse Resp B/P (MAP) Pulse Ox O2 Delivery O2 Flow Rate FiO2 12/04/19 08:21 68 16 98 Room Air 21 12/04/19 04:00 98.8 64 15 117/55 (75) 99 12/04/19 04:00 80 12/04/19 00:00 56 12/04/19 00:00 98.0 58 16 139/52 (81) 98 12/03/19 21:35 70 16 97 Room Air 21 12/03/19 21:00 Room Air 12/03/19 20:00 97.9 66 18 145/65 (91) 97 12/03/19 20:00 61 12/03/19 16:00 96.7 67 20 117/69 (85) 97 12/03/19 16:00 63 12/03/19 12:00 97.7 64 19 138/68 (91) 96 12/03/19 12:00 61 Intake and Output 12/03/19 12/04/19 19:00 07:00 Intake Total 140 ml 415 ml Output Total 140 ml Balance 0 ml 415 ml Intake Oral 140 ml 360 ml IV Total 55 ml Output Urine Total 140 ml # Voids 3 2 General Appearance: WD/WN HEENT: normocephalic, atraumatic Respiratory: chest wall non-tender, lungs clear Cardiovascular: normal peripheral pulses, normal rate Abdomen: normal bowel sounds, soft, non tender Genitourinary: normal external genitalia Extremities: no cyanosis 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 II-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 grossly normal Microbiology Date/Time Source Procedure Growth Status 12/01/19 18:10 Stool Clostridium difficile Toxin Assay - Final Complete Laboratory Tests 12/03/19 11:04: POC Whole Blood Glucose 144H 12/03/19 16:29: POC Whole Blood Glucose 169H 12/03/19 19:58: POC Whole Blood Glucose 114H 12/04/19 05:57: POC Whole Blood Glucose 122H Current Medications Medications (Trade) Dose Ordered Sig/Sabas Route PRN Reason Start Time Stop Time Status Last Admin Dose Admin Acetaminophen (Tylenol) 650 mg Q4H PRN ORAL FEVER 11/29/19 08:30 12/29/19 08:29 Acetaminophen (Tylenol) 650 mg Q6H PRN ORAL For mild pain and temp>100.4 11/29/19 08:30 12/29/19 08:29 12/02/19 04:46 Acetaminophen/ Codeine Phosphate (Tylenol #3) 1 tab Q6H PRN ORAL For severe Pain 11/29/19 08:30 12/06/19 08:29 Amlodipine Besylate (Norvasc) 10 mg DAILY ORAL 11/29/19 09:00 12/29/19 08:59 12/03/19 09:01 Aspirin (ASA) 162 mg DAILY ORAL 11/29/19 09:00 01/13/20 08:59 12/03/19 09:01 Ceftriaxone Sodium 1 gm/ Dextrose 55 ml @ 110 mls/hr Q24H IVPB 11/29/19 21:00 12/06/19 20:59 12/03/19 20:15 Dextrose (Dextrose 50%) 25 ml Q30M PRN IV Hypoglycemia 11/29/19 08:30 02/27/20 08:29 Dextrose (Dextrose 50%) 50 ml Q30M PRN IV Hypoglycemia 11/29/19 08:30 02/27/20 08:29 Diltiazem HCl (Cardizem) 10 mg Q1H PRN IV heart rate more than 120, 11/29/19 08:30 12/29/19 08:29 Enalaprilat (Vasotec) 2.5 mg Q6H PRN IV sbp more than 160 11/29/19 08:30 12/29/19 08:29 Heparin Sodium (Porcine) (Heparin 5000 units/ml) 5,000 units EVERY 8 HOURS SUBQ 11/29/19 14:00 01/13/20 13:59 12/04/19 05:52 Insulin Aspart (NovoLOG) BEFORE MEALS AND HS SUBQ 11/29/19 11:30 02/27/20 11:29 12/03/19 16:30 Levothyroxine Sodium (Synthroid) 50 mcg DAILY@0630 ORAL 12/01/19 06:30 12/31/19 06:29 12/04/19 05:51 Metoclopramide HCl (Reglan) 5 mg EVERY 6 HOURS NG 12/03/19 18:00 01/02/20 17:59 12/04/19 05:51 Metoprolol Tartrate (Lopressor) 100 mg DAILY ORAL 11/29/19 09:07 02/27/20 09:06 12/03/19 09:00 Nitroglycerin (Ntg) 0.4 mg Q5M PRN SL Prn Chest Pain 11/29/19 08:30 12/29/19 08:29 Ondansetron HCl (Zofran) 4 mg Q6H PRN IVP Nausea & Vomiting 11/29/19 08:30 12/29/19 08:29 12/03/19 11:51 Pantoprazole (Protonix) 40 mg DAILY ORAL 11/29/19 09:00 12/29/19 08:59 12/03/19 09:01 Temazepam (Restoril) 15 mg HSPRN PRN ORAL Insomnia 11/29/19 08:30 12/06/19 08:29 Assessment/Plan Problems: (1) Nausea & vomiting (2) Arrhythmia (3) History of hypertension (4) Diabetes mellitus Assessment/Plan doing better cardio note reviewed GI consult reviewed, will need to clear cardio consult cleared for DC Echo reviewed Paulette Garcia MD Dec 04, 2019 09:02
[2019-12-04] MEDS: Aspirin Baby 81mg ORAL SCH (09:18)
[2019-12-04] MEDS: Metoprolol Tartrate 100mg tab ORAL SCH (09:19)
--- NOTE | 2019-12-04 10:26 | Consultation ---
History of Present Illness General Date patient seen: Dec 04, 2019 Chief Complaint: Palpitations Reason for Consultation: Colitis Present Illness HPI Ms. Stark is a 64 yo female with PMHx of HTN and DM who presented to the ED on 12/01/19 with heart papitations. She reported feeling dizzy. She was recently on abx for UTI but otherwise feeling well. She denied N/V and abd pain but did repo rt some diarrhea. The diarrhea was present for about a week prior to hospitalization but she had not had diarrhea in the hospital. CT scan showed thickening versus underdistention of the distal sigmoid and rectum. She has been aferbile with no leukocytosis durign this hospitalization. She was put on Ceftriaxone on admit. ID was consulted for possible proctitis PMHx/PSHx DM HTN SocHx No E/T/D FamHx Not contributory Allergies: Coded Allergies: No Known Allergies (Unverified , 11/29/19) Medication History Scheduled Amlodipine Besylate* (Amlodipine Besylate*), 10 MG ORAL DAILY, (Reported) Cephalexin* (Keflex*), 500 MG ORAL EVERY 12 HOURS, (Reported) Metformin Hcl (Metformin Hcl Er), 500 MG ORAL DAILY, (Reported) Metoprolol Tartrate* (Metoprolol Tartrate*), 100 MG ORAL DAILY, (Reported) Patient History Healthcare decision maker Resuscitation status Advanced Directive on File Review of Systems ROS Narrative 12 point ROS negative except as noted in the HPI Physical Exam Physical Exam Narrative GEN: NAD HEENT: NCAT, MMM, EOMI NECK: Supple, Good ROM HEART: RRR, S1, S2 LUNGS: CTAB, No W ABD: Soft, NT, ND, + BS NEURO: A/O X 3, No Focal deficits SKIN: normal in color no rashes Last 24 Hour Vital Signs Date Time Temp Pulse Resp B/P (MAP) Pulse Ox O2 Delivery O2 Flow Rate FiO2 12/04/19 09:19 83 121/60 12/04/19 09:19 83 121/60 12/04/19 09:00 Room Air 12/04/19 08:21 68 16 98 Room Air 21 12/04/19 08:00 80 12/04/19 08:00 98.8 83 16 121/60 (80) 95 12/04/19 04:00 98.8 64 15 117/55 (75) 99 12/04/19 04:00 80 12/04/19 00:00 56 12/04/19 00:00 98.0 58 16 139/52 (81) 98 12/03/19 21:35 70 16 97 Room Air 21 12/03/19 21:00 Room Air 12/03/19 20:00 97.9 66 18 145/65 (91) 97 12/03/19 20:00 61 12/03/19 16:00 96.7 67 20 117/69 (85) 97 12/03/19 16:00 63 12/03/19 12:00 97.7 64 19 138/68 (91) 96 12/03/19 12:00 61 Intake and Output 12/03/19 12/04/19 19:00 07:00 Intake Total 140 ml 415 ml Output Total 140 ml Balance 0 ml 415 ml Intake Oral 140 ml 360 ml IV Total 55 ml Output Urine Total 140 ml # Voids 3 2 Laboratory Tests Test 12/03/19 11:04 12/03/19 16:29 12/03/19 19:58 12/04/19 05:57 POC Whole Blood Glucose 144 MG/DL (74-106) H 169 MG/DL (74-106) H 114 MG/DL (74-106) H 122 MG/DL (74-106) H Height (Feet): 5 Height (Inches): 1.00 Weight (Pounds): 130 Medications Current Medications Medications (Trade) Dose Ordered Sig/Sabas Route PRN Reason Start Time Stop Time Status Last Admin Dose Admin Acetaminophen (Tylenol) 650 mg Q4H PRN ORAL FEVER 11/29/19 08:30 12/29/19 08:29 Acetaminophen (Tylenol) 650 mg Q6H PRN ORAL For mild pain and temp>100.4 11/29/19 08:30 12/29/19 08:29 12/02/19 04:46 Acetaminophen/ Codeine Phosphate (Tylenol #3) 1 tab Q6H PRN ORAL For severe Pain 11/29/19 08:30 12/06/19 08:29 Amlodipine Besylate (Norvasc) 10 mg DAILY ORAL 11/29/19 09:00 12/29/19 08:59 12/04/19 09:19 Aspirin (ASA) 162 mg DAILY ORAL 11/29/19 09:00 01/13/20 08:59 12/04/19 09:18 Ceftriaxone Sodium 1 gm/ Dextrose 55 ml @ 110 mls/hr Q24H IVPB 11/29/19 21:00 12/06/19 20:59 12/03/19 20:15 Dextrose (Dextrose 50%) 25 ml Q30M PRN IV Hypoglycemia 11/29/19 08:30 02/27/20 08:29 Dextrose (Dextrose 50%) 50 ml Q30M PRN IV Hypoglycemia 11/29/19 08:30 02/27/20 08:29 Diltiazem HCl (Cardizem) 10 mg Q1H PRN IV heart rate more than 120, 11/29/19 08:30 12/29/19 08:29 Enalaprilat (Vasotec) 2.5 mg Q6H PRN IV sbp more than 160 11/29/19 08:30 12/29/19 08:29 Heparin Sodium (Porcine) (Heparin 5000 units/ml) 5,000 units EVERY 8 HOURS SUBQ 11/29/19 14:00 01/13/20 13:59 12/04/19 05:52 Insulin Aspart (NovoLOG) BEFORE MEALS AND HS SUBQ 11/29/19 11:30 02/27/20 11:29 12/03/19 16:30 Levothyroxine Sodium (Synthroid) 50 mcg DAILY@0630 ORAL 12/01/19 06:30 12/31/19 06:29 12/04/19 05:51 Metoclopramide HCl (Reglan) 5 mg EVERY 6 HOURS NG 12/03/19 18:00 01/02/20 17:59 12/04/19 05:51 Metoprolol Tartrate (Lopressor) 100 mg DAILY ORAL 11/29/19 09:07 02/27/20 09:06 12/04/19 09:19 Nitroglycerin (Ntg) 0.4 mg Q5M PRN SL Prn Chest Pain 11/29/19 08:30 12/29/19 08:29 Ondansetron HCl (Zofran) 4 mg Q6H PRN IVP Nausea & Vomiting 11/29/19 08:30 12/29/19 08:29 12/03/19 11:51 Pantoprazole (Protonix) 40 mg DAILY ORAL 11/29/19 09:00 12/29/19 08:59 12/04/19 09:18 Temazepam (Restoril) 15 mg HSPRN PRN ORAL Insomnia 11/29/19 08:30 12/06/19 08:29 Assessment/Plan Assessment/Plan: Ms. Stark is a 64 yo female with PMHx of HTN and DM who presented to the ED on 12/01/19 with heart papitations. ID was consulted for possible proctitis Proctitis - CT not specitive - No active dirrhea at this time CT Abd/Pel 12/01/19 - 1. Prominence of the leavitt of the rectum and si gmoid colon may be secondary to underdistention. Colitis-proctitis is not excluded. 2. Prominence of the wall of the bladder may be secondary to under distention. Please correlate with urinalysis if concerned for cystitis. 3. Hepatic steatosis. Afebrile No Leukocytosis Recent UTI S/P Abx Urine Cx 12/01/19 - Neg DM HTN PLAN - Continue Ceftriaxone #4 for probable Proctitis On D/C could give a short course of Levofloxacin (End date 12/07/19) - Monitor CBC and Temps Thank you for this consult. [facility] will continue to follow the patient with you. Guanakito Martinez MD Dec 04, 2019 10:26
[2019-12-04 12:00] VITALS: BP 119/67
[2019-12-04] MEDS ORDERED: SYNTHROID50 MCG ORAL (12:42)
--- NOTE | 2019-12-04 12:44 | Internal Med Progress Note ---
Subjective Date of Service: Dec 04, 2019 Physician Name Hickey,Gomez Attending Physician Cecil Viera MD Current Medications Medications (Trade) Dose Ordered Sig/Sabas Route PRN Reason Start Time Stop Time Status Last Admin Dose Admin Acetaminophen (Tylenol) 650 mg Q4H PRN ORAL FEVER 11/29/19 08:30 12/29/19 08:29 Acetaminophen (Tylenol) 650 mg Q6H PRN ORAL For mild pain and temp>100.4 11/29/19 08:30 12/29/19 08:29 12/02/19 04:46 Acetaminophen/ Codeine Phosphate (Tylenol #3) 1 tab Q6H PRN ORAL For severe Pain 11/29/19 08:30 12/06/19 08:29 Amlodipine Besylate (Norvasc) 10 mg DAILY ORAL 11/29/19 09:00 12/29/19 08:59 12/04/19 09:19 Aspirin (ASA) 162 mg DAILY ORAL 11/29/19 09:00 01/13/20 08:59 12/04/19 09:18 Ceftriaxone Sodium 1 gm/ Dextrose 55 ml @ 110 mls/hr Q24H IVPB 11/29/19 21:00 12/06/19 20:59 12/03/19 20:15 Dextrose (Dextrose 50%) 25 ml Q30M PRN IV Hypoglycemia 11/29/19 08:30 02/27/20 08:29 Dextrose (Dextrose 50%) 50 ml Q30M PRN IV Hypoglycemia 11/29/19 08:30 02/27/20 08:29 Diltiazem HCl (Cardizem) 10 mg Q1H PRN IV heart rate more than 120, 11/29/19 08:30 12/29/19 08:29 Enalaprilat (Vasotec) 2.5 mg Q6H PRN IV sbp more than 160 11/29/19 08:30 12/29/19 08:29 Heparin Sodium (Porcine) (Heparin 5000 units/ml) 5,000 units EVERY 8 HOURS SUBQ 11/29/19 14:00 01/13/20 13:59 12/04/19 05:52 Insulin Aspart (NovoLOG) BEFORE MEALS AND HS SUBQ 11/29/19 11:30 02/27/20 11:29 12/03/19 16:30 Levothyroxine Sodium (Synthroid) 50 mcg DAILY@0630 ORAL 12/01/19 06:30 12/31/19 06:29 12/04/19 05:51 Metoclopramide HCl (Reglan) 5 mg EVERY 6 HOURS NG 12/03/19 18:00 01/02/20 17:59 12/04/19 12:06 Metoprolol Tartrate (Lopressor) 100 mg DAILY ORAL 11/29/19 09:07 02/27/20 09:06 12/04/19 09:19 Nitroglycerin (Ntg) 0.4 mg Q5M PRN SL Prn Chest Pain 11/29/19 08:30 12/29/19 08:29 Ondansetron HCl (Zofran) 4 mg Q6H PRN IVP Nausea & Vomiting 11/29/19 08:30 12/29/19 08:29 12/03/19 11:51 Pantoprazole (Protonix) 40 mg DAILY ORAL 11/29/19 09:00 12/29/19 08:59 12/04/19 09:18 Temazepam (Restoril) 15 mg HSPRN PRN ORAL Insomnia 11/29/19 08:30 12/06/19 08:29 Allergies: Coded Allergies: No Known Allergies (Unverified , 11/29/19) ROS Limited/Unobtainable: No Constitutional: Reports: no symptoms HEENT: Reports: no symptoms Cardiovascular: Reports: no symptoms Respiratory: Reports: no symptoms Gastrointestinal/Abdominal: Reports: no symptoms Genitourinary: Reports: no symptoms Neurologic/Psychiatric: Reports: no symptoms Subjective 64 YO F admitted with palpitations. Now PVC's. Cover for Int Justice-DR Viera. Objective Last Vital Signs Date Time Temp Pulse Resp B/P (MAP) Pulse Ox O2 Delivery O2 Flow Rate FiO2 12/04/19 12:00 98.0 80 17 119/67 (84) 94 12/04/19 09:00 Room Air 12/04/19 08:21 21 Laboratory Tests Test 12/03/19 16:29 12/03/19 19:58 12/04/19 05:57 12/04/19 12:01 POC Whole Blood Glucose 169 MG/DL (74-106) H 114 MG/DL (74-106) H 122 MG/DL (74-106) H Pending Microbiology Date/Time Source Procedure Growth Status 12/01/19 18:10 Stool Stool Culture - Preliminary NO SALMONELLA,SHIGELLA,OR CAMPYLOBACT... Resulted 12/01/19 18:10 Stool Clostridium difficile Toxin Assay - Final Complete Intake and Output 12/03/19 12/04/19 19:00 07:00 Intake Total 140 ml 415 ml Output Total 140 ml Balance 0 ml 415 ml Intake Oral 140 ml 360 ml IV Total 55 ml Output Urine Total 140 ml # Voids 3 2 Objective PHYSICAL EXAMINATION: GENERAL: The patient is awake and responsive, in no acute distress. HEAD AND NECK: Pupils are equal and reactive to light. Extraocular movements are intact. Neck was supple. No JVD. LUNGS: Good air entry. No wheezing or rales. HEART: S1, S2. Regular rhythm. No gallops. ABDOMEN: Soft, nondistended, and nontender. Positive bowel sounds. EXTREMITIES: No cyanosis, clubbing, or edema. NEUROLOGIC: Cranial nerves II through XII grossly normal. Motor is 5/5 in all extremities. Gait is intact. RECTAL: Refused and deferred. GENITOURINARY: Refused and deferred. PSYCHIATRIC: Mood and affect is intact. Assessment/Plan Assessment/Plan ASSESSMENT: 1. Palpitation. 2. Hypokalemia. 3. Dehydration. 4. Acute urinary tract infection (culture=NG) 5. Diabetes type 2. 6. Hypertension. 7. Chronic Nausea and vomiting 8. Hypothyroidism PLAN: 1. Admit the patient to monitored unit. 2. We will follow up potassium supplement. 3. Code status is Full Code. 4. DVT prophylaxis, heparin subcutaneous. 5. Broad spectrum antibiotic, Rocephin. 6. 2D echo LVEF=60-65% 7. Dr. Garcia=Pulmonary/Critical Care. 8. CT abdomen and pelvis=possible colitis -discussed with Patient daughter, Sue Mena-worried about cancer 9. GI=Dr Kwok; await possible endoscopy 10. Cardiology=Dr York-no further workup at this time 11. continue levoxyl Gomez Hickey MD Dec 04, 2019 12:44
--- NOTE | 2019-12-04 14:09 | General Progress Note ---
Subjective ROS Limited/Unobtainable: Yes Allergies: Coded Allergies: No Known Allergies (Unverified , 11/29/19) Objective Last 24 Hour Vital Signs Date Time Temp Pulse Resp B/P (MAP) Pulse Ox O2 Delivery O2 Flow Rate FiO2 12/04/19 13:38 75 12/04/19 12:00 98.0 80 17 119/67 (84) 94 12/04/19 09:19 83 121/60 12/04/19 09:19 83 121/60 12/04/19 09:00 Room Air 12/04/19 08:21 68 16 98 Room Air 21 12/04/19 08:00 80 12/04/19 08:00 98.8 83 16 121/60 (80) 95 12/04/19 04:00 98.8 64 15 117/55 (75) 99 12/04/19 04:00 80 12/04/19 00:00 56 12/04/19 00:00 98.0 58 16 139/52 (81) 98 12/03/19 21:35 70 16 97 Room Air 21 12/03/19 21:00 Room Air 12/03/19 20:00 97.9 66 18 145/65 (91) 97 12/03/19 20:00 61 12/03/19 16:00 96.7 67 20 117/69 (85) 97 12/03/19 16:00 63 Intake and Output 12/03/19 12/04/19 19:00 07:00 Intake Total 140 ml 415 ml Output Total 140 ml Balance 0 ml 415 ml Intake Oral 140 ml 360 ml IV Total 55 ml Output Urine Total 140 ml # Voids 3 2 Laboratory Tests 12/03/19 16:29: POC Whole Blood Glucose 169H 12/03/19 19:58: POC Whole Blood Glucose 114H 12/04/19 05:57: POC Whole Blood Glucose 122H 12/04/19 12:01: POC Whole Blood Glucose [Pending] Height (Feet): 5 Height (Inches): 1.00 Weight (Pounds): 130 General Appearance: no apparent distress EENT: normal ENT inspection Neck: supple Cardiovascular: normal rate Respiratory/Chest: decreased breath sounds Abdomen: normal bowel sounds, non tender, soft Extremities: non-tender Assessment/Plan Assessment/Plan: Assessment/Plan Assessment/Plan: Assessment - 10 days of loose BM, now better - proctitis on CT - fatty liver per CT - nausea -DM Recommendations - follow symptoms -stool culture neg -C. diff neg - monitor nausea>> resolved - anti emetics -low dose reglan - needs out patient fu for GI procedures Alexander Sanders MD Dec 04, 2019 14:09
[2019-12-04] MEDS ORDERED: NS 275ml ONE (16:29)
[2019-12-04] MEDS ORDERED: Tubing IV Secondary IV ONE (16:29)
--- NOTE | 2019-12-04 16:30 | NUR ---
NURSE NOTES: Discharge instruction given to patient and daughter, verbalized understanding, awake overnight monitor and IV removed, no distress or bleeding noted. Patient is in stable condition. Paper work signed by daughter. Belonging check done. Escorted downstairs, and left via private vehicle.
--- NOTE | 2019-12-05 09:20 | Discharge Summary ---
Discharge Summary Discharge Summary _ DATE OF ADMISSION: 11/29/2019 DATE OF DISCHARGE: 12/04/2019 DISCHARGED BY: Dr. Viera REASON FOR ADMISSION: 64 years old female with past medical history significant for hypertension, diabetes mellitus type 2, hypothyroidism, presented to emergency department complaining of palpitation for 2 days. Patient felt dizzy. Patient recently was on Keflex due to urinary tract infection. Symptoms got progressively worse , and she decided to come to emergency room for further evaluation. Upon arrival in the ED patient noted to have multiply PVC on case monitor. Blood pressure was elevated 175/97. Laboratory work-up revealed stable CBC. Potassium 3.1. Stable other electrolytes and renal parameters. Magnesium 1.8. Lactic acid 1.8. Glucose 169. Troponin negative , pro BNP 89. CRP less than 0.4 , d-dimer negative . Urinalysis revealed pyuria, +3 leukocyte esterase, and few bacteria Rapid COVID-19 was negative. Chest x-ray revealed no acute cardiopulmonary pathology. Noted elevated TSH 7.893. Patient admitted for further management. CONSULTANTS: glass mechanic Chela Garcia ID specialist Dr. Martinez GI specialist Dr. Sanders [facility]: Patient admitted to monitored floor . Potassium was replaced . Patient started on broad-spectrum antibiotics . DVT prophylaxis provided. Echocardiogram revealed preserved ejection fraction 60 to 65%. No evidence of left ventricular hypertrophy. No evidence of wall motion abnormality. Right ventricular systolic pressure of 25. Patient was observed on telemetry. Over the 4 days of observation telemetry showed no arrhythmia . EKG was stable , telemetry was negative, troponin negative. TSH was rechecked and was within normal limits. Echocardiogram with preserved ejection fraction . Blood pressure was managed with beta-vahid and calcium channel vahid. Per glass mechanic nothing to pursue at this time. Processing Manager recommended follow-up with a primary care provider and cleared for discharge from cardiac standpoint. Patient had 10 days of loose bowel movement. CT scan of the abdomen and pelvis revealed possible evidence of proctittis. GI specialist followed. GI specialist recommended symptomatic treatment at this time. Antiemetic provided as needed. Nausea resolved. Patient started on low-dose of Reglan. GI specialist recommended to follow-up with e GI as outpatient for GI procedure. Stool for C. difficile was negative , stool culture was negative. Patient remained afebrile, no leukocytosis. ID specialist followed for possible proctitis. Patient received ceftriaxone for probable proctitis and on discharge changed to Levaquin to complete the course. Diarrhea resolved. Patient has history of recent UTI , status post antibiotics. Last urine culture 11/30 was negative. Patient clinically stabilized and was ready for discharge. FINAL DIAGNOSES: Palpitations-resolved Proctitis Hypokalemia -resolved Dehydration UTI Diabetes mellitus type 2 Hypertension Fatty liver Hypothyroidism DISCHARGE MEDICATIONS: See Medication Reconciliation list. DISCHARGE INSTRUCTIONS: Patient was discharged home. Follow up with primary care provider in one week. Patietn will need to follow-up with GI for outpatient GI procedure. I have been assigned to dictate discharge summary for this account. I was not involved in the patient's management. Elena Diaz NP Dec 05, 2019 09:20
== END 2019-12-04 16:30 | disposition home or self-care (01) | DRG 201 ==
LOC: EDBD 03:34 → EMR 03:45 → 2E 05:09 → EDBEDREQ 05:47
DX: I49.8 Other specified cardiac arrhythmias (principal); I49.3 Ventricular premature depolarization; R00.2 Palpitations; N39.0 Urinary tract infection, site not specified; E87.6 Hypokalemia; E11.9 Type 2 diabetes mellitus without complications; I10 Essential (primary) hypertension; E86.0 Dehydration; K62.89 Other specified diseases of anus and rectum; K76.0 Fatty (change of) liver, not elsewhere classified; R10.9 Unspecified abdominal pain; I36.1 Nonrheumatic tricuspid (valve) insufficiency; J98.11 Atelectasis; R11.2 Nausea with vomiting, unspecified; Z79.84 Long term (current) use of oral hypoglycemic drugs
CPT/HCPCS: 36415; 71045; 74177; 80048; 80053; 80061; 81001; 81003; 82150; 82270; 82550; 82728; 82962; 83605; 83615; 83690; 83735; 83880; 84100; 84439; 84443; 84481; 84484; 85007; 85025; 85379; 85610; 85730; 86140; 87045; 87086; 87324; 93306; 94664; 96365; 96367; 99285; J1815; J2405; J8499; U0002